=== PATIENT | male | born 1955 | race American Indian/Alaskan Native ===

== ENCOUNTER → 2016-12-24 | Outpatient (CLI) | payer OTHER ==
[2016-12-24 15:13] LABS: CHLORIDE,CL 98 mmol/L (98-110); SODIUM,NA 139 mmol/L (136-146)
--- NOTE | 2016-12-24 16:29 | CT ---
CT of the abdomen and pelvis without contrast. HISTORY: Pain TECHNIQUE: Axial CT images were obtained of the abdomen and pelvis without contrast. Coronal and sag ittal reconstructions obtained. FINDINGS: The lung bases are clear, no pleural effusion. The liver is nodular in contour. The spleen is mildly prominent size. Tiny hepatic calcifications ar e also noted. Adrenal glands, and pancreas appear unremarkable for noncontrast examination. The gall bladder appears normal. There is no bulky retroperitoneal lymphadenopathy. No abdominal ascites. Tiny renal cysts are noted. Nonobstructing stones noted within the kidneys bilaterally. The large and small bowel are normal in caliber without evidence of obstruction. The appendix appear s normal. Scattered diverticula are noted with moderate. Colonic stranding noted within the descendi ng colon. There is no bulky pelvic lymphadenopathy. No free fluid. No free air. The urinary bladder appears normal. Moderate aortic calcifications are present. Tiny fat-containing hernias. There is minimal retrolisthesis of L2 on L3. Mild degenerative changes noted within the lumbar spine and SI joints. IMPRESSION: 1. Diverticulitis within the descending colon. 2. Nodular liver consistent with cirrhosis with mild splenomegaly. 3. Small nonobstructing renal stones. 4. Moderate atheromatous vascular disease.
== END ==
LOC: MW.CHIM 13:52
PROVIDERS: ATTEND Internal Medicine
DX: R10.9 Unspecified abdominal pain (principal); K57.32 Diverticulitis of large intestine without perforation or abscess without bleeding; N20.0 Calculus of kidney; I70.90 Unspecified atherosclerosis
CPT/HCPCS: 36415; 74176; 74176-26; 80053; 81001; 85025; 85652; 86140

== ENCOUNTER 2017-11-06 10:17 | Day surgery (SDC) | payer OTHER ==
[~2017-11-06 10:17] MED LIST: Lactated Ringers 1,000 ML IV SCH; Lidocaine 2% 5 ML SDV ONE; Propofol 200 MG/20 ML SDV ONE
[2017-11-06] MEDS ORDERED: Propofol 200 MG/20 ML SDV ONE ×2 (12:55→13:07)
--- NOTE | 2017-11-06 13:36 | PCM.OPNOTE ---
- General Post-Op/Procedure Note Date of Surgery/Procedure: 11/06/17 Operative Procedure(s): Esophagogastroduodenoscopy with biopsy. Colonoscopy with cold cecal, transverse and sigmoid colon polyps. Pre Op Diagnosis: Personal history of colon polyps. Anemia. Post-Op Diagnosis: Gastritis. Cecal, transverse and sigmoid colon polyps. Diverticulosis. Anesthesia Technique: MAC (ASA III) Primary Surgeon: Morgan Drisocll Craft Coordinator: Raj Bullock Condition: Good Free Text/Narrative:: Dictation [id number] CPT CODE [id number]
[2017-11-06] MEDS ORDERED: Lactated Ringers 1,000 ML IV SCH (13:45)
--- NOTE | 2017-11-06 13:45 | PCM.POSTAN ---
POST ANESTHESIA ASSESSMENT - MENTAL STATUS Mental Status: Alert, Oriented - RESPIRATORY Respiratory Status: Respiratory Rate WNL, Airway Patent, O2 Saturation Stable - CARDIOVASCULAR CV Status: Pulse Rate WNL, Blood Pressure Stable - GASTROINTESTINAL GI Status: No Symptoms - POST OP HYDRATION Hydration Status: Adequate & Stable
--- NOTE | 2017-11-06 13:46 | PCM.PREANE ---
Preanesthetic Assessment - Anesthesia/Transfusion/Family Hx Anesthesia History: Prior Anesthesia Without Reaction Other Type of Anesthesia Reaction Comment: Denies any known problem in past Transfusion History: No Prior Transfusion(s) - Review of Systems General: No Symptoms Pulmonary: No Symptoms Cardiovascular: No Symptoms Gastrointestinal: No Symptoms Neurological: No Symptoms Other: Reports: None - Physical Assessment NPO Status Date: 11/05/17 NPO Status Time: 20:00 O2 Sat by Pulse Oximetry: 97 Respiratory Rate: 14 Vital Signs: Last Vital Signs Temp 97.7 F 11/06/17 11:04 Pulse 72 11/06/17 13:37 Resp 14 11/06/17 13:37 BP 90/63 11/06/17 13:37 Pulse Ox 97 11/06/17 13:37 Height: 5 ft 4 in Weight: 86.183 kg ASA Class: 4 Mental Status: Alert & Oriented x3 Dentition: Reports: Missing Tooth/Teeth Thyro-Mental Finger Breadths: 3 Mouth Opening Finger Breadths: 3 ROM/Head Extension: Full Lungs: Clear to Auscultation, Normal Respiratory Effort Cardiovascular: Regular Rate, Regular Rhythm - Lab Values: Laboratory Last Values Sodium 137 mmol/L (136-146) 11/06/17 11:24 Potassium 4.9 mmol/L (3.5-5.1) 11/06/17 11:24 Chloride 99 mmol/L (98-110) 11/06/17 11:24 Carbon Dioxide 26 mmol/L (21-31) 11/06/17 11:24 BUN 22 mg/dL (6.0-23.0) 11/06/17 11:24 Creatinine 5.7 mg/dL (0.6-1.5) H 11/06/17 11:24 Est Cr Clr Drug Dosing 10.96 mL/min 11/06/17 11:24 Estimated GFR (MDRD) 10.1 ml/min 11/06/17 11:24 Glucose 112 mg/dL (60-110) H 11/06/17 11:24 Calcium 9.7 mg/dL (8.8-10.8) 11/06/17 11:24 - Allergies Allergies/Adverse Reactions: Allergies Allergy/AdvReac Type Severity Reaction Status Date / Time trazodone Allergy Itching Verified 11/03/17 09:05 Bandaids Allergy Itching Uncoded 11/03/17 12:25 - Acknowledgements Anesthesia Type Planned: MAC Pt an Appropriate Candidate for the Planned Anesthesia: Yes Alternatives and Risks of Anesthesia Discussed w Pt/Guardian: Yes Pt/Guardian Understands and Agrees with Anesthesia Plan: Yes PreAnesthesia Questionnaire Other HEENT History: Bilateral hearing aids, wears glasses, upper and lower denture Cardiovascular History: Reports: High Cholesterol, Hypertension, [place] Respiratory History: Reports: SOB Other Respiratory History: SOB with excertion Gastrointestinal History: Reports: GERD, Hepatitis Other Gastrointestinal History: Hepatitis C with treatment Genitourinary History: Reports: Dialysis Musculoskeletal History: Reports: Other (See Below) Other Musculoskeletal History: hx fx collarbone Neurological History: Reports: Other (See Below) Other Neuro History: Restless Legs Endocrine/Metabolic History: Reports: Diabetes, Type II, Obesity/BMI 30+ Dermatologic History: Reports: None - Past Surgical History Head Surgeries/Procedures: Reports: None HEENT Surgical History: Reports: Adenoidectomy, Oral Surgery, Tonsillectomy Other HEENT Surgeries/Procedures: T & A age 5 yrs Cardiovascular Surgical History: Reports: Coronary Artery Stent Other Cardiovascular Surgeries/Procedures: Stenting 13 yrs ago [place] [id number], [place] stenting [place] 09/2014 GI Surgical History: Reports: Colonoscopy Other GI Surgeries/Procedures: Liver Biopsy 10 yrs ago Male Surgical History: Reports: Vasectomy - SUBSTANCE USE Smoking Status *Q: Former Smoker Tobacco Use Within Last Twelve Months:  Second Hand Smoke Exposure: No Days Per Week of Alcohol Use: 0 Recreational Drug Use History: No - HOME MEDS Home Medications: Home Meds Albuterol [Ventolin HFA] 8 gm INH Q6H PRN 05/22/15 [History] Ascorbic Acid [C-1000] 1,000 mg PO BID 05/22/15 [History] Bumetanide [Bumex] 1 mg PO DAILY 05/22/15 [History] Calcium Acetate 3 tab PO TIDMEALS 05/22/15 [History] Isosorbide Mononitrate [Isosorbide Mononitrate ER] 60 mg PO BID 05/22/15 [ History] Melatonin 6 mg PO BEDTIME 05/22/15 [History] Ranitidine [Zantac] 150 mg PO BID 05/22/15 [History] hydrALAZINE [Apresoline] 25 mg PO TID 05/22/15 [History] rOPINIRole [Requip] 2 mg PO BEDTIME 05/22/15 [History] Aspirin [Adult Low Dose Aspirin EC] 81 mg PO BEDTIME 05/23/15 [History] Nitroglycerin [Nitro-Dur 0.3 MG/Hr] 1 patch TD DAILY 05/23/15 [History] Nitroglycerin [Nitrostat] 0.4 mg SL ASDIRECTED PRN 05/23/15 [History] Sevelamer HCl [Renagel] 800 mg PO TIDMEALS 05/23/15 [History] Glucosamine [Glucosamine Sulfate] 750 mg PO BID 07/28/15 [History] Multivitamin [Daily Multiple Vitamin] 1 tab PO DAILY 07/28/15 [History] NIFEdipine [Nifedipine ER] 60 mg PO BID 07/28/15 [History] [place]-3 Fatty Acids [[place]-3] 1 cap PO DAILY 07/28/15 [History] Metoprolol Tartrate 100 mg PO BID 11/03/17 [History] - CURRENT (IN HOUSE) MEDS Current Meds: Current Medications Lactated Ringer's (Ringers, Lactated) 1,000 mls @ 125 mls/hr IV ASDIRECTED [facility] Last Admin: 11/06/17 11:05 Dose: 125 mls/hr Lactated Ringer's (Ringers, Lactated) 1,000 mls @ 125 mls/hr IV ASDIRECTED [facility] Discontinued Medications Lidocaine (Xylocaine-Mpf 2%) Confirm Administered Dose 5 ml .ROUTE .STK-MED ONE Stop: 11/06/17 07:33 Propofol (Diprivan 20 Ml) Confirm Administered Dose 400 mg .ROUTE .STK-MED ONE Stop: 11/06/17 07:33 Propofol (Diprivan 20 Ml) Confirm Administered Dose 200 mg .ROUTE .STK-MED ONE Stop: 11/06/17 12:56 Propofol (Diprivan 20 Ml) Confirm Administered Dose 200 mg .ROUTE .STK-MED ONE Stop: 11/06/17 13:08
[2017-11-06 13:55] VITALS: BP 151/66
--- NOTE | 2017-11-06 14:00 | PCM48HPAN ---
Post Anesthesia Note - EVALUATION WITHIN 48HRS OF ANESTHETIC Vital Signs in Normal Range: Yes Patient Participated in Evaluation: Yes Respiratory Function Stable: Yes Airway Patent: Yes Cardiovascular Function Stable: Yes Hydration Status Stable: Yes Pain Control Satisfactory: Yes Nausea and Vomiting Control Satisfactory: Yes Mental Status Recovered: Yes
--- NOTE | 2017-11-06 19:40 | OR ---
SURGEON: Morgan Driscoll M.D. DATE OF PROCEDURE: 11/06/2017 OPERATION PERFORMED: Esophagogastroduodenoscopy with biopsy. ANESTHESIA: MAC. ASA CLASSIFICATION: 3. PREOPERATIVE DIAGNOSES: 1. Persistent abdominal pain. 2. Anemia. POSTOPERATIVE DIAGNOSIS: Mild gastritis. DESCRIPTION OF PROCEDURE: The patient was taken to the endoscopy room and positioned on the endoscopy table in the supine position. Time-out was called for appropriate identification of the patient and procedure. Monitored anesthesia care was provided. A bite block was placed between the patient's teeth. The gastroscope was inserted through the bite block into the oropharynx and advanced without difficulty through the esophagus and stomach into the duodenum where examination was now carried out in a retrograde fashion. The duodenum shows no acute inflammatory changes or ulcerations. The stomach does show [id number] gastritis. Antral biopsies were obtained to look for the presence of Helicobacter pylori. The gastroscope was then retroflexed to visualize the proximal stomach. No tumors or polyps were seen. The gastroscope was then straightened and slowly withdrawn aspirating the stomach as the scope was withdrawn. The GE junction was well defined and shows no acute inflammatory changes. The esophagus demonstrates fair contractility. No mid or proximal lesions were identified. The vocal cords were not visualized as the scope was withdrawn. The patient tolerated this portion of the procedure well. Following colonoscopy, he was taken to recovery room in stable condition. BALJINDER ADAN /[id number]
--- NOTE | 2017-11-06 19:46 | OR ---
SURGEON: Morgan Driscoll M.D. DATE OF PROCEDURE: 11/06/2017 OPERATION PERFORMED: Colonoscopy with cecal, transverse, and descending colon cold polypectomy. INSURANCE ADJUSTOR: Dr. Allen, PGY-3. ANESTHESIA: MAC. ASA CLASSIFICATION: 3. PREOPERATIVE DIAGNOSES: 1. New onset anemia. 2. Personal history of colon polyps. POSTOPERATIVE DIAGNOSES: 1. Cecal polyp. 2. Transverse colon polyp. 3. Descending colon polyp. 4. Sigmoid diverticulosis. DESCRIPTION OF PROCEDURE: With the patient having completed esophagogastroduodenoscopy, he was now positioned in the left lateral decubitus position. The colonoscope was inserted into the rectum and advanced with minimal difficulty to the cecum where the colonoscope was retroflexed to visualize the ascending colon from below. The colonoscope was then straightened and slowly withdrawn. One polyp was encountered in the cecum and removed with the cold biopsy forceps. The ascending colon, hepatic flexure, transverse colon, and splenic flexure showed no tumors, or polyps. Scattered diverticular changes were noted throughout the entire length of the colon. One polyp was encountered in the transverse colon and removed with the cold biopsy forceps. A 3rd polyp was encountered in the sigmoid colon and likewise removed with the cold biopsy forceps. The patient demonstrates significant sigmoid diverticular disease. No stricture, spasm, or bleeding was noted. The colonoscope was then withdrawn to the rectum and retroflexed to visualize the anal orifice from above. No tumors or polyps were seen and there were no acute hemorrhoidal changes. The colonoscope was then straightened, the rectum aspirated, and the colonoscope removed. The patient tolerated the procedure well and was taken to recovery room in satisfactory condition. BALJINDER / ANTIONETTE /[id number]
== END 2017-11-06 14:00 | disposition home or self-care (01) ==
LOC: MW.SDS 10:17
PROVIDERS: ATTEND Surgery
DX: D12.4 Benign neoplasm of descending colon (principal); K29.50 Unspecified chronic gastritis without bleeding; D12.0 Benign neoplasm of cecum; D12.3 Benign neoplasm of transverse colon; D64.9 Anemia, unspecified; K57.30 Diverticulosis of large intestine without perforation or abscess without bleeding; I25.10 Atherosclerotic heart disease of native coronary artery without angina pectoris; K74.60 Unspecified cirrhosis of liver; I10 Essential (primary) hypertension; E78.00 Pure hypercholesterolemia, unspecified; G47.00 Insomnia, unspecified; E11.9 Type 2 diabetes mellitus without complications; I25.2 Old myocardial infarction; E66.9 Obesity, unspecified; Z68.33 Body mass index [BMI] 33.0-33.9, adult; Z86.010 Personal history of colon polyps; Z88.8 Allergy status to other drugs, medicaments and biological substances; Z79.899 Other long term (current) drug therapy; Z98.52 Vasectomy status; Z98.890 Other specified postprocedural states; Z90.89 Acquired absence of other organs; Z87.891 Personal history of nicotine dependence; Z86.19 Personal history of other infectious and parasitic diseases; Z95.5 Presence of coronary angioplasty implant and graft; Z79.82 Long term (current) use of aspirin
CPT/HCPCS: 36415; 43239; 45380; 80048; 88305; 88312; 93005; J7120; 00813; J2704

== ENCOUNTER 2019-03-15 04:29 | Emergency (ER) | payer OTHER ==
[2019-03-15] MEDS ORDERED: Albuterol/Ipratropium 3.0-0.5 MG/3 ML Neb Soln ONE (04:41)
[2019-03-15] MEDS ORDERED: Albuterol/Ipratropium 3.0-0.5 MG/3 ML Neb Soln NEB ONE ×2 (04:43→05:49)
[2019-03-15] MEDS ORDERED: Sodium Chloride 0.9% 2.5 ML Syringe FLUSH PRN (04:44)
[2019-03-15] MEDS ORDERED: Sodium Chloride 0.9% 10 ML Syringe FLUSH PRN (04:44)
[2019-03-15] MEDS ORDERED: Aspirin 81 MG Tab.Chew PO ONE (04:44)
[2019-03-15] MEDS ORDERED: methylPREDNISolone Sodium Succinate 125 MG/2 ML SDV IVPUSH ONE (04:44)
--- NOTE | 2019-03-15 04:53 | EDM.PDOC ---
ED HPI GENERAL MEDICAL PROBLEM - General Chief Complaint: Respiratory Problem Stated Complaint: SOB Time Seen by Provider: 03/15/19 04:34 - History of Present Illness INITIAL COMMENTS - FREE TEXT/NARRATIVE: HISTORY AND PHYSICAL: History of present illness: The patient is a 63-year-old male with a history of hypertension chronic renal failure on hemodialysis, Thursday and Thursday here in our clinic, and respiratory abnormality which does not have a formal diagnosis but for which he uses a Ventolin/albuterol inhaler when necessary and presents with with a one-week history of harsh hacking cough which is spastic in nature and over the last 2 days has been associated with some phlegm. The patient has no chest pain or fever but says that he has been progressively more short of breath. The patient has not used his Ventolin inhaler until tonight. The patient smokes one pack a day for many years. He says that when he does his dialysis they correct both fluid and electrolytes and his last dialysis was done on Thursday and was a normal run. The patient is scheduled for dialysis at 6 AM, 1 hour from this dictation. Patient has a fistula on his right forearm which is functional and does well with his dialysis and he has been on dialysis for the last 5 years. The patient does make some urine but not a normal amount and he has had no abdominal pain bloating nausea vomiting or diarrhea. He denies that he is having any chest pain but with activity and movement as well as laying flat he feels more short of breath. Since to the ED stating that she thinks he has pneumonia and that was her concern. When asked if he has a formal diagnosis of COPD or asthma they declined. Currently in the ED he is not complaining of any pain whatsoever including chest pain. The patient does have a history of peripheral vascular disease and has a stent and his proximal leg and also has a coronary artery stent that was placed over 10 years ago The patient has had some recent workup in the last few weeks including an echocardiogram and a nuclear med stress test, please see below for those results Review of systems: As per history of present illness and below otherwise all systems reviewed and negative. Past medical history: As per history of present illness and as reviewed below otherwise noncontributory. Surgical history: As per history of present illness and as reviewed below otherwise noncontributory. Social history: No reported history of drug or alcohol abuse. Family history: As per history of present illness and as reviewed below otherwise noncontributory. Physical exam: General: Well-developed well-nourished man who is nontoxic and speaking clearly in the ED. Room air O2 sat was 86-88% and other vital signs are noted by me HEENT: Atraumatic, normocephalic, , negative for conjunctival pallor or scleral icterus, mucous membranes moist, throat clear, neck supple, nontender, trachea midline. Lungs: Clear to auscultation in the upper barney and expiratory wheezing and tight air exchange in the bases bilaterally without any visible work of breathing stridor rails, breath sounds equal bilaterally, chest nontender. Heart: S1S2, regular rate and rhythm no overt murmurs are appreciated Abdomen: Soft, nondistended, nontender. Negative for masses or hepatosplenomegaly. Slightly hypoactive bowel sounds Pelvis: Stable nontender. Genitourinary: Deferred. Rectal: Deferred. Extremities: Atraumatic, negative for cords or calf pain. There is trace pitting edema bilaterally and no leg asymmetry and there is a fistula with a positive thrill appreciated in the lower right forearm. Neurovascular unremarkable. Neuro: Awake, alert, oriented. Cranial nerves II through XII unremarkable. Cerebellum unremarkable. Motor and sensory unremarkable throughout. Exam nonfocal. Diagnostics: EKG CBC CMP BNP troponin lactic acid chest x-ray UA with reflex Therapeutics: IV O2 monitor duo neb Solu-Medrol spacer With 4 L simple mask the patient's O2 sat is 94-95% Patient's echo was done on March 03 and revealed an ejection fraction of 60-65% and normal LV function, mild concentric hypertrophy, mild aortic valve sclerosis , mild mitral valve regurgitation, increased left atrial and left ventricular end-diastolic pressures On February 14 the patient had a nuclear medicine stress test which revealed an EF of 70% no EKG changes of significance and a small reversible area in the inferior left wall at the base Today's hemoglobin is compared to one performed on January 26 which was 9.5 and one done in October which was 9.1 2 days of 9.6 Patient is feeling better and we are beginning to taper his oxygen. He does not want another nebulizer treatment at this time. They're currently awaiting his chest x-ray results I discussed all testing results with the patient and at bedside. I have offered them admission/transfer for further care of this respiratory abnormality as the patient is due for dialysis today and we cannot admit the patient here and they are declining. They're aware that his O2 sat when he came into the ED was 86-88% but has significantly improved with the bronchodilation. I have weaned his oxygen to room air and he is holding his sats at 93% on my personal evaluation. He is moving air better overall but still has some worse breath sounds and wheezing but is significantly improved then he has initial examination. They would like to try outpatient care and I will organize getting the patient a nebulizer through [employer] and give the albuterol unit dose vials , I will also give him a spacer so he can use his rescue inhaler, I will give 5 days of prednisone and I will also give them an antibiotic as the still has some concerns that they may be the start of a pneumonia as was seen on the x -ray. I think the patient needs to take big deep breaths and open his airways and he agrees that he has not been doing that at home. They would like to be discharged home to go to dialysis this morning and I have told him that if after his dialysis run he feels that he needs admission that he can return to the ED otherwise he can use the new tools that he has to control what I believe to be COPD which is undiagnosed at this point. Impression: Dyspnea/acute bronchospasm and bronchitis with likely COPD exacerbation, long history of tobacco use End-stage renal disease on hemodialysis Definitive disposition and diagnosis as appropriate pending reevaluation and review of above. - Related Data Allergies Allergy/AdvReac Type Severity Reaction Status Date / Time trazodone Allergy Itching Verified 03/15/19 04:36 Bandaids Allergy Itching Uncoded 03/15/19 04:36 Home Meds: Home Meds Albuterol [Ventolin HFA] 8 gm INH Q6H PRN 05/22/15 [History] Ascorbic Acid [C-1000] 2,000 mg PO BID 05/22/15 [History] Bumetanide [Bumex] 1 mg PO DAILY 05/22/15 [History] Melatonin 6 mg PO BEDTIME 05/22/15 [History] Ranitidine [Zantac] 150 mg PO BID 05/22/15 [History] hydrALAZINE [Apresoline] 25 mg PO BID 05/22/15 [History] rOPINIRole [Requip] 2 mg PO BEDTIME 05/22/15 [History] Aspirin [Adult Low Dose Aspirin EC] 81 mg PO BEDTIME 05/23/15 [History] Nitroglycerin [Nitro-Dur 0.3 MG/Hr] 1 patch TD DAILY 05/23/15 [History] Nitroglycerin [Nitrostat] 0.4 mg SL ASDIRECTED PRN 05/23/15 [History] Glucosamine [Glucosamine Sulfate] 1,000 mg PO BID 07/28/15 [History] Multivitamin [Daily Multiple Vitamin] 1 tab PO DAILY 07/28/15 [History] Metoprolol Tartrate 100 mg PO BID 11/03/17 [History] Acetaminophen/HYDROcodone [Craig 325-7.5 MG] 1 tab PO Q6H PRN 03/15/19 [History] Calcium Acetate [PhosLo] 667 mg PO TID 03/15/19 [History] Clopidogrel [Plavix] 75 mg PO DAILY 03/15/19 [History] Fenofibrate 54 mg PO DAILY 03/15/19 [History] Glycopyrrolate/Formoterol Fum [Bevespi Aerosphere Inhaler] 10.7 gm IH BID [History] Isosorbide Mononitrate [Imdur] 60 mg PO BID 03/15/19 [History] NIFEdipine [Procardia Xl] 60 mg PO BID 03/15/19 [History] Pantoprazole Sodium [Protonix] 20 mg PO DAILY 03/15/19 [History] Sevelamer Carbonate [Renvela] 1,600 mg PO TID 03/15/19 [History] Past Medical History Other HEENT History: Bilateral hearing aids, wears glasses, upper and lower denture Cardiovascular History: Reports: High Cholesterol, Hypertension, [place] Respiratory History: Reports: SOB Other Respiratory History: SOB with excertion Gastrointestinal History: Reports: GERD, Hepatitis Other Gastrointestinal History: Hepatitis C with treatment Genitourinary History: Reports: Dialysis, Renal Disease Musculoskeletal History: Reports: Fracture, Other (See Below) Other Musculoskeletal History: hx fx collarbone Neurological History: Reports: Other (See Below) Other Neuro History: Restless Legs Psychiatric History: Reports: None Endocrine/Metabolic History: Reports: Diabetes, Type II, Obesity/BMI 30+ Hematologic History: Reports: Anticoagulation Therapy, Blood Transfusion(s) Immunologic History: Reports: None Oncologic (Cancer) History: Reports: None Dermatologic History: Reports: None - Infectious Disease History Infectious Disease History: Reports: Hepatitis C - Past Surgical History Head Surgeries/Procedures: Reports: None HEENT Surgical History: Reports: Adenoidectomy, Oral Surgery, Tonsillectomy Cardiovascular Surgical History: Reports: Coronary Artery Stent Other Cardiovascular Surgeries/Procedures: Stenting 15 yrs ago [place] x1, [place] stenting [place] 09/2014 GI Surgical History: Reports: Colonoscopy Other GI Surgeries/Procedures: Liver Biopsy 10 yrs ago Male Surgical History: Reports: Vasectomy Social & Family History - Tobacco Use Smoking Status *Q: Current Every Day Smoker Years of Tobacco use: 47 Packs/Tins Daily: 1 - Recreational Drug Use Recreational Drug Use: No ED ROS GENERAL - Review of Systems Review Of Systems: ROS reveals no pertinent complaints other than HPI. ED EXAM, GENERAL - Physical Exam Exam: See Below (See dictation) Course - Vital Signs Last Recorded V/S: Last Vital Signs Temp 35.9 C 03/15/19 04:31 Pulse 86 03/15/19 05:15 Resp 20 03/15/19 05:15 BP 188/84 H 03/15/19 05:15 Pulse Ox 96 03/15/19 05:15 - Orders/Labs/Meds Orders: Active Orders 24 hr Category Date Time Status Cardiac Monitoring [RC] . DIRECTED Care 03/15/19 04:43 Active Communication Order [RC] STAT Care 03/15/19 05:34 Active Communication Order [RC] STAT Care 03/15/19 05:55 Ordered EKG Documentation Completion [RC] STAT Care 03/15/19 04:43 Active Oxygen Therapy, ED [RC] ASDIRECTED Care 03/15/19 04:43 Active Pulse Oximetry [RC] ASDIRECTED Care 03/15/19 04:43 Active RT Aerosol Therapy [RC] ASDIRECTED Care 03/15/19 04:44 Active RT Aerosol Therapy [RC] ASDIRECTED Care 03/15/19 05:49 Active Sodium Chloride 0.9% [Saline Flush] Med 03/15/19 04:44 Active 10 ml FLUSH ASDIRECTED PRN Sodium Chloride 0.9% [Saline Flush] Med 03/15/19 04:44 Active 2.5 ml FLUSH ASDIRECTED PRN Saline Lock Insert [OM.PC] Stat Oth 03/15/19 04:43 Ordered Medication Orders Sodium Chloride (Saline Flush) 10 ml FLUSH ASDIRECTED PRN PRN Reason: Keep Vein Open Sodium Chloride (Saline Flush) 2.5 ml FLUSH ASDIRECTED PRN PRN Reason: Keep Vein Open Labs: Laboratory Tests 03/15/19 03/15/19 03/15/19 Range/Units 04:30 04:30 04:30 WBC 8.88 (4.0-11.0) K/uL RBC 2.96 L (4.50-5.90) M/uL Hgb 9.6 L (13.0-17.0) g/dL Hct 30.6 L (38.0-50.0) % MCV 103.4 H (80.0-98.0) fL MCH 32.4 H (27.0-32.0) pg MCHC 31.4 (31.0-37.0) g/dL RDW Std Deviation 60.4 (28.0-62.0) fl RDW Coeff of Candido 16 H (11.0-15.0) % Plt Count 106 L (150-400) K/uL MPV 9.70 (7.40-12.00) fL Neut % (Auto) 85.7 H (48.0-80.0) % Lymph % (Auto) 8.4 L (16.0-40.0) % [place] % (Auto) 3.8 (0.0-15.0) % Eos % (Auto) 1.9 (0.0-7.0) % Baso % (Auto) 0.2 (0.0-1.5) % Neut # (Auto) 7.6 H (1.4-5.7) K/uL Lymph # (Auto) 0.8 (0.6-2.4) K/uL [place] # (Auto) 0.3 (0.0-0.8) K/uL Eos # (Auto) 0.2 (0.0-0.7) K/uL Baso # (Auto) 0.0 (0.0-0.1) K/uL Nucleated RBC % 0.0 /100WBC Nucleated RBCs # 0 K/uL Lactate (0.20-2.00) mmol/L Sodium 139 (136-148) mmol/L Potassium 4.4 (3.5-5.1) mmol/L Chloride 99 (98-107) mmol/L Carbon Dioxide 21.6 (21.0-32.0) mmol/L BUN 78 H (7.0-18.0) mg/dL Creatinine 9.9 H (0.8-1.3) mg/dL Est Cr Clr Drug Dosing 6.47 mL/min Estimated GFR (MDRD) 5.3 ml/min Glucose 165 H (74-106) mg/dL Calcium 9.8 (8.5-10.1) mg/dL Total Bilirubin 0.4 (0.2-1.0) mg/dL AST 16 (15-37) IU/L ALT 18 (14-63) IU/L Alkaline Phosphatase 90 (46-116) U/L Troponin I < 0.050 (0.000-0.056) ng/mL B-Natriuretic Peptide 794 H (<100) PG/ML Total Protein 7.4 (6.4-8.2) g/dL Albumin 3.7 (3.4-5.0) g/dL Globulin 3.7 (2.6-4.0) g/dL Albumin/Globulin Ratio 1.0 (0.9-1.6) Urine Color Urine Appearance Urine pH (5.0-8.0) Ur Specific [place] (1.001-1.035) Urine Protein (NEGATIVE) mg/dL Urine Glucose (UA) (NEGATIVE) mg/dL Urine Ketones (NEGATIVE) mg/dL Urine Occult Blood (NEGATIVE) Urine Nitrite (NEGATIVE) Urine Bilirubin (NEGATIVE) Urine Urobilinogen (<2.0) EU/dL Ur Leukocyte Esterase (NEGATIVE) Urine RBC (0-2/HPF) Urine WBC (0-5/HPF) Ur Epithelial Cells (NONE-FEW) Urine Bacteria (NEGATIVE) Urine Mucus (NONE-MOD) 03/15/19 03/15/19 Range/Units 05:00 05:15 WBC (4.0-11.0) K/uL RBC (4.50-5.90) M/uL Hgb (13.0-17.0) g/dL Hct (38.0-50.0) % MCV (80.0-98.0) fL MCH (27.0-32.0) pg MCHC (31.0-37.0) g/dL RDW Std Deviation (28.0-62.0) fl RDW Coeff of [place] (11.0-15.0) % Plt Count (150-400) K/uL MPV (7.40-12.00) fL Neut % (Auto) (48.0-80.0) % Lymph % (Auto) (16.0-40.0) % [place] % (Auto) (0.0-15.0) % Eos % (Auto) (0.0-7.0) % Baso % (Auto) (0.0-1.5) % Neut # (Auto) (1.4-5.7) K/uL Lymph # (Auto) (0.6-2.4) K/uL [place] # (Auto) (0.0-0.8) K/uL Eos # (Auto) (0.0-0.7) K/uL Baso # (Auto) (0.0-0.1) K/uL Nucleated RBC % /100WBC Nucleated RBCs # K/uL Lactate 0.6 (0.20-2.00) mmol/L Sodium (136-148) mmol/L Potassium (3.5-5.1) mmol/L Chloride (98-107) mmol/L Carbon Dioxide (21.0-32.0) mmol/L BUN (7.0-18.0) mg/dL Creatinine (0.8-1.3) mg/dL Est Cr Clr Drug Dosing mL/min Estimated GFR (MDRD) ml/min Glucose (74-106) mg/dL Calcium (8.5-10.1) mg/dL Total Bilirubin (0.2-1.0) mg/dL AST (15-37) IU/L ALT (14-63) IU/L Alkaline Phosphatase (46-116) U/L Troponin I (0.000-0.056) ng/mL B-Natriuretic Peptide (<100) PG/ML Total Protein (6.4-8.2) g/dL Albumin (3.4-5.0) g/dL Globulin (2.6-4.0) g/dL Albumin/Globulin Ratio (0.9-1.6) Urine Color YELLOW Urine Appearance CLEAR Urine pH 7.5 (5.0-8.0) Ur Specific [place] 1.020 (1.001-1.035) Urine Protein >=300 H (NEGATIVE) mg/dL Urine Glucose (UA) 100 H (NEGATIVE) mg/dL Urine Ketones NEGATIVE (NEGATIVE) mg/dL Urine Occult Blood SMALL H (NEGATIVE) Urine Nitrite NEGATIVE (NEGATIVE) Urine Bilirubin NEGATIVE (NEGATIVE) Urine Urobilinogen 0.2 (<2.0) EU/dL Ur Leukocyte Esterase NEGATIVE (NEGATIVE) Urine RBC 5-6 (0-2/HPF) Urine WBC 0-2 (0-5/HPF) Ur Epithelial Cells RARE (NONE-FEW) Urine Bacteria FEW (NEGATIVE) Urine Mucus LIGHT (NONE-MOD) Meds: Medications Generic Name Dose Route Start Last Admin Trade Name Freq PRN Reason Stop Dose Admin Sodium Chloride 10 ml 03/15/19 04:44 Saline Flush FLUSH ASDIRECTED PRN Keep Vein Open Sodium Chloride 2.5 ml 03/15/19 04:44 Saline Flush FLUSH ASDIRECTED PRN Keep Vein Open Discontinued Medications Generic Name Dose Route Start Last Admin Trade Name Freq PRN Reason Stop Dose Admin Albuterol/Ipratropium Confirm 03/15/19 04:41 03/15/19 04:55 Duoneb 3.0-0.5 Mg/3 Ml Administered 03/15/19 04:42 Not Given Dose 3 ml .ROUTE .STK-MED ONE Albuterol/Ipratropium 3 ml 03/15/19 04:43 03/15/19 04:54 Duoneb 3.0-0.5 Mg/3 Ml NEB 03/15/19 04:44 3 ml ONETIME ONE Administration Albuterol/Ipratropium 3 ml 03/15/19 05:49 03/15/19 05:52 Duoneb 3.0-0.5 Mg/3 Ml NEB 03/15/19 05:50 3 ml ONETIME ONE Administration Aspirin 324 mg 03/15/19 04:44 03/15/19 04:50 Aspirin PO 03/15/19 04:45 324 mg ONETIME ONE Administration Methylprednisolone Sodium Succinate 125 mg 03/15/19 04:44 03/15/19 04:49 Solu-Medrol IVPUSH 03/15/19 04:45 125 mg ONETIME ONE Administration Departure - Departure Time of Disposition: 06:02 Disposition: Home, Self-Care 01 Condition: Good Clinical Impression: Acute bronchitis with bronchospasm, End stage renal disease - Discharge Information Referrals: Yosef العراقي MD [Primary Care Provider] - Forms: ED Department Discharge Additional Instructions: The following information is given to patients seen in the emergency department who are being discharged to home. This information is to outline your options for follow-up care. We provide all patients seen in our emergency department with a follow-up referral. The need for follow-up, as well as the timing and circumstances, are variable depending upon the specifics of your emergency department visit. If you don't have a primary care physician on staff, we will provide you with a referral. We always advise you to contact your personal physician following an emergency department visit to inform them of the circumstance of the visit and for follow-up with them and/or the need for any referrals to a consulting specialist. The emergency department will also refer you to a specialist when appropriate. This referral assures that you have the opportunity for followup care with a specialist. All of these measure are taken in an effort to provide you with optimal care, which includes your followup. Under all circumstances we always encourage you to contact your private physician who remains a resource for coordinating your care. When calling for followup care, please make the office aware that this follow-up is from your recent emergency room visit. If for any reason you are refused follow-up, please contact the [facility] emergency department at and ask to speak to the emergency department charge nurse. [facility] Primary care- Internal Medicine and Family [place] [phone] Go to your dialysis appointment this morning and reevaluate your symptoms after your dialysis run and return to ER as needed and as discussed. Please get your nebulizer machine from [facility] as we instructed and filled the prescription for all of your medications that he will need to take in this acute phase of your respiratory problem. Call and schedule a follow-up appointment with your provider in the clinic and return to ER for any worsening of your symptoms or as we discussed. - My Orders Last 24 Hours: My Active Orders 03/15/19 04:43 Cardiac Monitoring [RC] . DIRECTED EKG Documentation Completion [RC] STAT Oxygen Therapy, ED [RC] ASDIRECTED Pulse Oximetry [RC] ASDIRECTED Saline Lock Insert [OM.PC] Stat 03/15/19 04:44 RT Aerosol Therapy [RC] ASDIRECTED Sodium Chloride 0.9% [Saline Flush] 10 ml FLUSH ASDIRECTED PRN Sodium Chloride 0.9% [Saline Flush] 2.5 ml FLUSH ASDIRECTED PRN 03/15/19 05:34 Communication Order [RC] STAT 03/15/19 05:49 RT Aerosol Therapy [RC] ASDIRECTED 03/15/19 05:55 Communication Order [RC] STAT - Assessment/Plan Last 24 Hours: My Active Orders 03/15/19 04:43 Cardiac Monitoring [RC] . DIRECTED EKG Documentation Completion [RC] STAT Oxygen Therapy, ED [RC] ASDIRECTED Pulse Oximetry [RC] ASDIRECTED Saline Lock Insert [OM.PC] Stat 03/15/19 04:44 RT Aerosol Therapy [RC] ASDIRECTED Sodium Chloride 0.9% [Saline Flush] 10 ml FLUSH ASDIRECTED PRN Sodium Chloride 0.9% [Saline Flush] 2.5 ml FLUSH ASDIRECTED PRN 03/15/19 05:34 Communication Order [RC] STAT 03/15/19 05:49 RT Aerosol Therapy [RC] ASDIRECTED 03/15/19 05:55 Communication Order [RC] STAT
[2019-03-15 05:04] LABS: CHLORIDE,CL 99 mmol/L (98-107); SODIUM,NA 139 mmol/L (136-148)
--- NOTE | 2019-03-15 05:44 | CR ---
Indication: Shortness of breath Technique: Chest 2 views Comparison: 09/17/2016 Findings/Impression: Cardiovascular and mediastinum: Unremarkable cardiomediastinal silhouette for a portable technique. A calcified aorta. Lungs and pleural spaces: Foci of mild subsegmental atelectasis. A right infrahilar opacity could represent atelectasis or an infiltrate. Correlate clinically and followup. No pleural effusions. 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 Dictated by Collins Childress MD @ 03/15/2019 5:42:29 AM Dictated by: Collins Childress MD @ 03/15/2019 05:42:34 (Electronically Signed)
[2019-03-15 06:19] VITALS: BP 182/77
== END 2019-03-15 06:27 | disposition home or self-care (01) ==
LOC: MW.ED 04:29
DX: J20.9 Acute bronchitis, unspecified (principal); I12.0 Hypertensive chronic kidney disease with stage 5 chronic kidney disease or end stage renal disease; N18.6 End stage renal disease; E78.00 Pure hypercholesterolemia, unspecified; I25.2 Old myocardial infarction; K21.9 Gastro-esophageal reflux disease without esophagitis; F17.210 Nicotine dependence, cigarettes, uncomplicated; Z99.2 Dependence on renal dialysis; Z88.8 Allergy status to other drugs, medicaments and biological substances; Z88.5 Allergy status to narcotic agent; Z79.899 Other long term (current) drug therapy
CPT/HCPCS: 36415; 71046; 80053; 81001; 83605; 83880; 84484; 85025; 93005; 94640; 96374; 99285; A9270; J2930; 99283; J7620-GY

== ENCOUNTER 2019-03-27 20:49 | Emergency (ER) | payer OTHER ==
[2019-03-27] MEDS ORDERED: Aspirin 81 MG Tab.Chew PO ONE (21:07)
[2019-03-27] MEDS ORDERED: Morphine 2 MG/ML Syringe IVPUSH ONE (21:07)
[2019-03-27] MEDS ORDERED: Ondansetron 4 MG/2 ML SDV IVPUSH ONE (21:07)
[2019-03-27] MEDS ORDERED: Nitroglycerin/D5W 25 MG/250 ML BOTTLE IV SCH (21:15)
[2019-03-27] MEDS ORDERED: Sodium Chloride 0.9% 1,000 ML IV SCH (21:15)
--- NOTE | 2019-03-27 21:21 | EDM.PDOC ---
ED HPI GENERAL MEDICAL PROBLEM - General Chief Complaint: Chest Pain Stated Complaint: CHEST PAIN Time Seen by Provider: 03/27/19 20:59 - History of Present Illness INITIAL COMMENTS - FREE TEXT/NARRATIVE: HISTORY AND PHYSICAL: History of present illness: Patient 64-year-old male with history of coronary artery disease who presents with chest pain substernal partially relieved with sublingual nitroglycerin 4 and regular patient continued to have chest pain and shortness of breath he did have nausea with one episode of emesis on arrival. Review of systems: As per history of present illness and below otherwise all systems reviewed and negative. Past medical history: As per history of present illness and as reviewed below otherwise noncontributory. Surgical history: As per history of present illness and as reviewed below otherwise noncontributory. Social history: No reported history of drug or alcohol abuse. Family history: As per history of present illness and as reviewed below otherwise noncontributory. Physical exam: HEENT: Atraumatic, normocephalic, pupils reactive, negative for conjunctival pallor or scleral icterus, mucous membranes moist, throat clear, neck supple, nontender, trachea midline. Lungs: Clear to auscultation, breath sounds equal bilaterally, chest nontender. Heart: S1S2, regular, negative for clicks, rubs, or JVD. Abdomen: Soft, nondistended, nontender. Negative for masses or hepatosplenomegaly. Negative for costovertebral tenderness. Pelvis: Stable nontender. Genitourinary: Deferred. Rectal: Deferred. Extremities: Atraumatic, negative for cords or calf pain. Neurovascular unremarkable. Neuro: Awake, alert, oriented. Cranial nerves II through XII unremarkable. Cerebellum unremarkable. Motor and sensory unremarkable throughout. Exam nonfocal. Diagnostics: CBC CMP troponin PT/INR chest x-ray EKG BNP Therapeutics: Full dose aspirin by mouth IV O2 monitor IV nitroglycerin morphine sulfate 2 mg IV Zofran 4 mg IV Impression: #1 chest pain #2 acute coronary syndrome Definitive disposition and diagnosis as appropriate pending reevaluation and review of above. Middle Chest Pain Score (Numeric/FACES): 10 - Related Data Allergies Allergy/AdvReac Type Severity Reaction Status Date / Time trazodone Allergy Itching Verified 03/27/19 21:02 Bandaids Allergy Itching Uncoded 03/27/19 21:02 Home Meds: Home Meds Albuterol [Ventolin HFA] 8 gm INH Q6H PRN 05/22/15 [History] Ascorbic Acid [C-1000] 2,000 mg PO BID 05/22/15 [History] Bumetanide [Bumex] 1 mg PO DAILY 05/22/15 [History] Melatonin 6 mg PO BEDTIME 05/22/15 [History] Ranitidine [Zantac] 150 mg PO BID 05/22/15 [History] hydrALAZINE [Apresoline] 25 mg PO BID 05/22/15 [History] rOPINIRole [Requip] 2 mg PO BEDTIME 05/22/15 [History] Aspirin [Adult Low Dose Aspirin EC] 81 mg PO BEDTIME 05/23/15 [History] Nitroglycerin [Nitro-Dur 0.3 MG/Hr] 1 patch TD DAILY 05/23/15 [History] Nitroglycerin [Nitrostat] 0.4 mg SL ASDIRECTED PRN 05/23/15 [History] Glucosamine [Glucosamine Sulfate] 1,000 mg PO BID 07/28/15 [History] Multivitamin [Daily Multiple Vitamin] 1 tab PO DAILY 07/28/15 [History] Metoprolol Tartrate 100 mg PO BID 11/03/17 [History] Acetaminophen/HYDROcodone [Dora 325-7.5 MG] 1 tab PO Q6H PRN 03/15/19 [History] Calcium Acetate [PhosLo] 667 mg PO TID 03/15/19 [History] Clopidogrel [Plavix] 75 mg PO DAILY 03/15/19 [History] Fenofibrate 54 mg PO DAILY 03/15/19 [History] Glycopyrrolate/Formoterol Fum [Bevespi Aerosphere Inhaler] 10.7 gm IH BID [History] Isosorbide Mononitrate [Imdur] 60 mg PO BID 03/15/19 [History] NIFEdipine [Procardia Xl] 60 mg PO BID 03/15/19 [History] Pantoprazole Sodium [Protonix] 20 mg PO DAILY 03/15/19 [History] Sevelamer Carbonate [Renvela] 1,600 mg PO TID 03/15/19 [History] Budesonide/Formoterol [Symbicort 160-4.5 MCG] mg INH ASDIRECTED PRN 03/27/19 [ History] Past Medical History Other HEENT History: Bilateral hearing aids, wears glasses, upper and lower denture Cardiovascular History: Reports: High Cholesterol, Hypertension, [place] Respiratory History: Reports: SOB Other Respiratory History: SOB with excertion Gastrointestinal History: Reports: GERD, Hepatitis Other Gastrointestinal History: Hepatitis C with treatment Genitourinary History: Reports: Dialysis, Renal Disease Musculoskeletal History: Reports: Fracture, Other (See Below) Other Musculoskeletal History: hx fx collarbone Neurological History: Reports: Other (See Below) Other Neuro History: Restless Legs Psychiatric History: Reports: None Endocrine/Metabolic History: Reports: Diabetes, Type II, Obesity/BMI 30+ Hematologic History: Reports: Anticoagulation Therapy, Blood Transfusion(s) Immunologic History: Reports: None Oncologic (Cancer) History: Reports: None Dermatologic History: Reports: None - Infectious Disease History Infectious Disease History: Reports: Measles, Mumps - Past Surgical History Head Surgeries/Procedures: Reports: None HEENT Surgical History: Reports: Adenoidectomy, Oral Surgery, Tonsillectomy Cardiovascular Surgical History: Reports: Coronary Artery Stent Other Cardiovascular Surgeries/Procedures: Stenting 15 yrs ago [place] [id number], [place] stenting [place] 09/2014 GI Surgical History: Reports: Colonoscopy Other GI Surgeries/Procedures: Liver Biopsy 10 yrs ago Male Surgical History: Reports: Vasectomy Social & Family History - Family History Family Medical History: Noncontributory - Tobacco Use Smoking Status *Q: Current Every Day Smoker Years of Tobacco use: 40 Packs/Tins Daily: 0.5 - Caffeine Use Caffeine Use: Reports: None - Recreational Drug Use Recreational Drug Use: No ED ROS GENERAL - Review of Systems Review Of Systems: ROS reveals no pertinent complaints other than HPI. ED EXAM, GENERAL - Physical Exam Exam: See Below (See dictation) Course - Vital Signs Last Recorded V/S: Last Vital Signs Temp 36.8 C 03/27/19 22:42 Pulse 102 H 03/27/19 23:05 Resp 24 H 03/27/19 23:05 BP 158/74 H 03/27/19 23:05 Pulse Ox 97 03/27/19 23:05 - Orders/Labs/Meds Orders: Active Orders 24 hr Category Date Time Status Cardiac Monitoring [RC] . DIRECTED Care 03/27/19 21:07 Active EKG Documentation Completion [RC] STAT Care 03/27/19 21:07 Active Nitroglycerin/D5W [Nitroglycerin 25 MG/D5W 250 ML] Med 03/27/19 21:15 Active 25 mg in 250 ml IV TITRATE Sodium Chloride 0.9% [Normal Saline] 1,000 ml Med 03/27/19 21:15 Active IV ASDIRECTED Saline Lock Insert [OM.PC] Stat Oth 03/27/19 21:13 Ordered Medication Orders Nitroglycerin/Dextrose (Nitroglycerin 25 Mg/D5w 250 Ml) 25 mg in 250 mls @ 3 mls/hr IV TITRATE CÉSAR; Protocol Last Titration: 03/27/19 22:56 Dose: 10 mcg/min, 6 mls/hr Titration: 03/27/19 22:32 Dose: 20 mcg/min, 12 mls/hr Titration: 03/27/19 22:18 Dose: 15 mcg/min, 9 mls/hr Titration: 03/27/19 21:37 Dose: 10 mcg/min, 6 mls/hr Titration: 03/27/19 21:15 Dose: 20 mcg/min, 12 mls/hr Admin: 03/27/19 21:15 Dose: 5 mcg/min, 3 mls/hr Sodium Chloride (Normal Saline) 1,000 mls @ 125 mls/hr IV ASDIRECTED CÉSAR Last Admin: 03/27/19 21:15 Dose: 125 mls/hr Labs: Laboratory Tests 03/27/19 03/27/19 03/27/19 Range/Units 21:10 21:10 21:10 WBC 5.01 (4.0-11.0) K/uL RBC 2.87 L (4.50-5.90) M/uL Hgb 9.4 L (13.0-17.0) g/dL Hct 29.4 L (38.0-50.0) % MCV 102.4 H (80.0-98.0) fL MCH 32.8 H (27.0-32.0) pg MCHC 32.0 (31.0-37.0) g/dL RDW Std Deviation 62.5 H (28.0-62.0) fl RDW Coeff of Candido 17 H (11.0-15.0) % Plt Count 101 L (150-400) K/uL MPV 9.90 (7.40-12.00) fL Neut % (Auto) 76.2 (48.0-80.0) % Lymph % (Auto) 13.4 L (16.0-40.0) % [place] % (Auto) 8.2 (0.0-15.0) % Eos % (Auto) 1.8 (0.0-7.0) % Baso % (Auto) 0.4 (0.0-1.5) % Neut # (Auto) 3.8 (1.4-5.7) K/uL Lymph # (Auto) 0.7 (0.6-2.4) K/uL [place] # (Auto) 0.4 (0.0-0.8) K/uL Eos # (Auto) 0.1 (0.0-0.7) K/uL Baso # (Auto) 0.0 (0.0-0.1) K/uL Nucleated RBC % 0.0 /100WBC Nucleated RBCs # 0 K/uL INR 1.01 Sodium 143 (136-148) mmol/L Potassium 4.0 (3.5-5.1) mmol/L Chloride 101 (98-107) mmol/L Carbon Dioxide 28.9 (21.0-32.0) mmol/L BUN 47 H (7.0-18.0) mg/dL Creatinine 8.1 H (0.8-1.3) mg/dL Est Cr Clr Drug Dosing 7.80 mL/min Estimated GFR (MDRD) 6.7 ml/min Glucose 178 H (74-106) mg/dL Calcium 10.7 H (8.5-10.1) mg/dL Total Bilirubin 0.3 (0.2-1.0) mg/dL AST 15 (15-37) IU/L ALT 24 (14-63) IU/L Alkaline Phosphatase 133 H (46-116) U/L Troponin I < 0.050 (0.000-0.056) ng/mL B-Natriuretic Peptide (<100) PG/ML Total Protein 7.8 (6.4-8.2) g/dL Albumin 4.0 (3.4-5.0) g/dL Globulin 3.8 (2.6-4.0) g/dL Albumin/Globulin Ratio 1.1 (0.9-1.6) 03/27/19 Range/Units 21:10 WBC (4.0-11.0) K/uL RBC (4.50-5.90) M/uL Hgb (13.0-17.0) g/dL Hct (38.0-50.0) % MCV (80.0-98.0) fL MCH (27.0-32.0) pg MCHC (31.0-37.0) g/dL RDW Std Deviation (28.0-62.0) fl RDW Coeff of Candido (11.0-15.0) % Plt Count (150-400) K/uL MPV (7.40-12.00) fL Neut % (Auto) (48.0-80.0) % Lymph % (Auto) (16.0-40.0) % [place] % (Auto) (0.0-15.0) % Eos % (Auto) (0.0-7.0) % Baso % (Auto) (0.0-1.5) % Neut # (Auto) (1.4-5.7) K/uL Lymph # (Auto) (0.6-2.4) K/uL [place] # (Auto) (0.0-0.8) K/uL Eos # (Auto) (0.0-0.7) K/uL Baso # (Auto) (0.0-0.1) K/uL Nucleated RBC % /100WBC Nucleated RBCs # K/uL INR Sodium (136-148) mmol/L Potassium (3.5-5.1) mmol/L Chloride (98-107) mmol/L Carbon Dioxide (21.0-32.0) mmol/L BUN (7.0-18.0) mg/dL Creatinine (0.8-1.3) mg/dL Est Cr Clr Drug Dosing mL/min Estimated GFR (MDRD) ml/min Glucose (74-106) mg/dL Calcium (8.5-10.1) mg/dL Total Bilirubin (0.2-1.0) mg/dL AST (15-37) IU/L ALT (14-63) IU/L Alkaline Phosphatase (46-116) U/L Troponin I (0.000-0.056) ng/mL B-Natriuretic Peptide 208 H (<100) PG/ML Total Protein (6.4-8.2) g/dL Albumin (3.4-5.0) g/dL Globulin (2.6-4.0) g/dL Albumin/Globulin Ratio (0.9-1.6) Meds: Medications Generic Name Dose Route Start Last Admin Trade Name Freq PRN Reason Stop Dose Admin Nitroglycerin/Dextrose 25 mg in 250 mls @ 3 mls/hr 03/27/19 21:15 03/27/19 22 :56 Nitroglycerin 25 Mg/D5w 250 Ml IV 10 mcg/min TITRATE CÉSAR 6 mls/hr Titration Protocol 5 MCG/MIN Sodium Chloride 1,000 mls @ 125 mls/hr 03/27/19 21:15 03/27/19 21:15 Normal Saline IV 125 mls/hr ASDIRECTED CÉSAR Administration Discontinued Medications Generic Name Dose Route Start Last Admin Trade Name Freq PRN Reason Stop Dose Admin Aspirin 243 mg 03/27/19 21:07 03/27/19 21:05 Aspirin PO 03/27/19 21:08 243 mg ONETIME ONE Administration Labetalol HCl 20 mg 03/27/19 21:23 03/27/19 21:30 Normodyne IVPUSH 03/27/19 21:24 20 mg ONETIME ONE Administration Protocol Labetalol HCl Confirm 03/27/19 21:25 03/27/19 21:35 Normodyne Administered 03/27/19 21:26 Not Given Dose 100 mg .ROUTE .STK-MED ONE Labetalol HCl Confirm 03/27/19 22:49 03/27/19 22:58 Normodyne Administered 03/27/19 22:50 Not Given Dose 100 mg .ROUTE .STK-MED ONE Labetalol HCl 40 mg 03/27/19 22:47 03/27/19 22:56 Normodyne IVPUSH 03/27/19 22:48 40 mg ONETIME ONE Administration Protocol Morphine Sulfate 2 mg 03/27/19 21:07 03/27/19 21:15 Morphine IVPUSH 03/27/19 21:08 2 mg ONETIME ONE Administration Ondansetron HCl 4 mg 03/27/19 21:07 03/27/19 21:10 Zofran IVPUSH 03/27/19 21:08 4 mg ONETIME ONE Administration Departure - Departure Time of Disposition: 23:40 Disposition: DC/Tfer to Acute Hospital 02 Condition: Good Clinical Impression: Chest pain, Chronic renal failure, Hypertension - Discharge Information Referrals: Yosef العراقي MD [Primary Care Provider] - Forms: ED Department Discharge - My Orders Last 24 Hours: My Active Orders 03/27/19 21:07 Cardiac Monitoring [RC] . DIRECTED EKG Documentation Completion [RC] STAT 03/27/19 21:13 Saline Lock Insert [OM.PC] Stat 03/27/19 21:15 Nitroglycerin/D5W [Nitroglycerin 25 MG/D5W 250 ML] 25 mg in 250 ml IV TITRATE Sodium Chloride 0.9% [Normal Saline] 1,000 ml IV ASDIRECTED - Assessment/Plan Last 24 Hours: My Active Orders 03/27/19 21:07 Cardiac Monitoring [RC] . DIRECTED EKG Documentation Completion [RC] STAT 03/27/19 21:13 Saline Lock Insert [OM.PC] Stat 03/27/19 21:15 Nitroglycerin/D5W [Nitroglycerin 25 MG/D5W 250 ML] 25 mg in 250 ml IV TITRATE Sodium Chloride 0.9% [Normal Saline] 1,000 ml IV ASDIRECTED
[2019-03-27] MEDS ORDERED: Labetalol 100 MG/20 ML MDV IVPUSH ONE ×2 (21:23→22:47)
[2019-03-27] MEDS ORDERED: Labetalol 100 MG/20 ML MDV ONE ×2 (21:25→22:49)
--- NOTE | 2019-03-27 21:31 | CR ---
TECHNIQUE: Portable AP chest. INDICATION: Chest pain, dyspnea. COMPARISON: 03/15/2019. FINDINGS: Previously seen bilateral lower lung interstitial opacities have resolved. Lungs are now clear. Heart size and pulmonary vascularity normal. No effusion or pneumothorax. Healed right clavicle fracture. IMPRESSION: No acute chest findings. Dictated by Dov Polanco MD @ 03/27/2019 9:29:49 PM Dictated by: Dov Polanco MD @ 03/27/2019 21:29:53 (Electronically Signed)
[2019-03-27 21:46] LABS: CHLORIDE,CL 101 mmol/L (98-107); SODIUM,NA 143 mmol/L (136-148)
[2019-03-27] MEDS ORDERED: Nitroglycerin 2% Oint 1 GM UD Packet TOP ONE (23:58)
[2019-03-28] MEDS ORDERED: Labetalol 100 MG/20 ML MDV IVPUSH ONE (00:16)
[2019-03-28 00:34] VITALS: BP 182/83
== END 2019-03-28 00:41 ==
LOC: MW.ED 20:49
DX: I24.9 Acute ischemic heart disease, unspecified (principal); I12.9 Hypertensive chronic kidney disease with stage 1 through stage 4 chronic kidney disease, or unspecified chronic kidney disease; N18.9 Chronic kidney disease, unspecified; I25.2 Old myocardial infarction; Z99.2 Dependence on renal dialysis; E11.22 Type 2 diabetes mellitus with diabetic chronic kidney disease; E66.9 Obesity, unspecified; K21.9 Gastro-esophageal reflux disease without esophagitis; Z79.899 Other long term (current) drug therapy; Z98.890 Other specified postprocedural states; Z95.5 Presence of coronary angioplasty implant and graft; Z79.82 Long term (current) use of aspirin; Z88.8 Allergy status to other drugs, medicaments and biological substances
CPT/HCPCS: 36415; 71045; 80053; 83880; 84484; 85025; 85610; 93005; 96361; 96365; 96366; 96375; 96376; 99285; A9270; J2270; J2405; J3490; J7040; 99284

== ENCOUNTER 2019-05-14 03:06 | Emergency (ER) | payer OTHER ==
[2019-05-14] MEDS ORDERED: Rocuronium 100 MG/10 ML MDV IV ONE (03:07)
[2019-05-14] MEDS ORDERED: Succinylcholine 200 MG/10 ML MDV IV ONE (03:07)
[2019-05-14] MEDS ORDERED: Etomidate 2 MG/ML 20 ML SDV IVPUSH ONE (03:07)
--- NOTE | 2019-05-14 03:12 | EDM.PDOC ---
ED HPI GENERAL MEDICAL PROBLEM - General Stated Complaint: GENERAL CONFUSION Time Seen by Provider: 05/14/19 03:10 - History of Present Illness INITIAL COMMENTS - FREE TEXT/NARRATIVE: HISTORY AND PHYSICAL: History of present illness: The patient is a 64-year-old male with a history of hypertension peripheral vascular disease --stent in one of his lower extremities ---coronary artery disease with stent more than 10 years ago chronic renal disease who is on hemodialysis here at our dialysis center with a history of tobacco use as well as an undiagnosed respiratory disease for which he uses inhalers and who presents today with complaints of a diffuse headache that started 24 hours ago that has not responded to Aleve [id number] as well as loose diarrhea X times yesterday and 3 episodes of vomiting with some diffuse upper abdominal pain. The patient was exposed to his grandson who had some gastroenteritis and his headache started 24 hours ago and the GI symptoms soon thereafter. He has not had a fever at home chest pain or shortness of breath and does not make much urine as he is on dialysis. He is due for dialysis this morning in approximately 3 hours and his last dialysis was as scheduled this past . He does get dialyzed for both numbers and fluid. He says that despite the vomiting he was able to take all of his oral medications yesterday. He did try to take some Pepto-Bismol last evening. The daughter thought he might be getting dehydrated and tried to push some Powerade which he was able to tolerate. The daughter says that he has exhibited some mild confusion this morning in that he got in his car left his cell phone and drove here to the hospital because he thought he was due for his dialysis and his alarm did not go off but he is not due for another 3 hours. The patient says that he just got mistaken with respect to the time. He also told the daughter when she arrived here that he had put the car keys in one place when they were not in that location and he is normally much sharper than this per the daughter. Here in the ED he is able to answer questions and give appropriate answers and the daughter says it is just a subtle confusion but is definitely present. He has not had any recent trauma or falls in the last several days and has no extremity numbness weakness or neurosensory changes. He says his headache is all over and is not in one location and he has no midline back or neck pain. The patient denies any chest pain The patient is on hemodialysis on Thursday and Saturdays and has a fistula in his forearm. Review of systems: As per history of present illness and below otherwise all systems reviewed and negative. Past medical history: As per history of present illness and as reviewed below otherwise noncontributory. Surgical history: As per history of present illness and as reviewed below otherwise noncontributory. Social history: No reported history of drug or alcohol abuse. Family history: As per history of present illness and as reviewed below otherwise noncontributory. Physical exam: General: Well-developed well-nourished man who is nontoxic and vital signs are noted by me. He prefers to keep his eyes closed but he is awake and oriented and very cooperative. He is speaking clearly and easily. HEENT: Atraumatic, normocephalic, pupils reactive, negative for conjunctival pallor or scleral icterus, mucous membranes tacky, throat clear, neck supple, nontender, trachea midline. Lungs: Clear to auscultation, breath sounds equal bilaterally, chest nontender. Heart: S1S2, regular, negative for clicks, rubs, or JVD. Abdomen: Soft, nondistended, nontender. There is no tympany on percussion and the patient says he does not feel bloated and bowel sounds are hypoactive. Negative for masses or hepatosplenomegaly. Pelvis: Stable nontender. Genitourinary: Deferred. Rectal: Deferred. Extremities: Atraumatic, negative for cords or calf pain. There is trace pedal edema bilaterally and there is a fistula appreciated in the right forearm with a positive thrill. Neurovascular unremarkable. Neuro: Awake, alert, oriented. Cranial nerves II through XII unremarkable. Cerebellum unremarkable. Motor and sensory unremarkable throughout. Exam nonfocal. Skin: There is no diaphoresis and turgor is normal Diagnostics: EKG CBC CMP lactate INR TSH amylase lipase stool for study chest x-ray 2 Therapeutics: IV O2 monitor IV fluids Zofran Toradol Ativan Lasix, please see below note for further information and the [employer]OBILE [employer]'s note. 0445: We difficulty getting the IV and the patient was very agitated with that and then said that he has restless leg syndrome and was very restless and we opted to give him 0.5 mg of Ativan to go to CT for his head CT and his chest x- ray. While he was down and CAT scan was called by nursing to say that he was very agitated and would not sit still so we brought him back up to the ED and on my evaluation of him upon return he clearly is in pulmonary edema with coarse rales throughout all lung barney and increased work of breathing diaphoresis and pallor. O2 sats were in the 60s and this is a complete change from when the patient left the ED to go for his testing. I cautioned the family and the patient when he came in that in managing his dehydration it would be a delicate line and we did give him fluids and his had no acute change in the opposite direction with fluid overload. Anesthesia was called and the family was talked to about what was going on and that he would need to be flown to [facility] in [place] for emergent dialysis and then we could regroup and further address why he came here which was the diarrhea and the headache. He never had his CT of the head performed and we did do a pre-intubation chest x- ray as well as a post intubation chest x-ray. 0510: I set up for intubation and anesthesia arrived prior to my performance of this procedure and please see their note for easy intubation of this patient without complication. A post intubation chest x-ray was performed and I will check that film. Flight team has been notified and is in route here. The patient will now be given Lasix and I did discuss with the and daughter what was going on prior to all of these events and they went home to get supplies for the transfer. They are aware that the patient will likely improve from a pulmonary standpoint once we're able to dialyze the fluid off. I discussed this case with Dr. Mcdonald at [facility] in [place] at 5:07 AM and he accepts the patient for transfer. Flight team is in route. Please note that the patient never produced a stool for study and the CAT scan of the head was never performed and Dr. Mcdonald is aware of this. He says that he will address those issues when the patient arrives. Critical care time excluding procedures :35min Impression: Headache with mild confusion, vomiting and diarrhea, history of end-stage renal disease on dialysis; acute pulmonary edema with respiratory distress/ respiratory failure Definitive disposition and diagnosis as appropriate pending reevaluation and review of above. headache Pain Score (Numeric/FACES): 10 - Related Data Allergies Allergy/AdvReac Type Severity Reaction Status Date / Time trazodone Allergy Itching Verified 05/14/19 03:13 Bandaids Allergy Itching Uncoded 05/14/19 03:13 Home Meds: Home Meds Albuterol [Ventolin HFA] 8 gm INH Q6H PRN 05/22/15 [History] Ascorbic Acid [C-1000] 2,000 mg PO BID 05/22/15 [History] Bumetanide [Bumex] 1 mg PO DAILY 05/22/15 [History] Melatonin 6 mg PO BEDTIME 05/22/15 [History] Ranitidine [Zantac] 150 mg PO BID 05/22/15 [History] hydrALAZINE [Apresoline] 25 mg PO BID 05/22/15 [History] rOPINIRole [Requip] 2 mg PO BEDTIME 05/22/15 [History] Aspirin [Adult Low Dose Aspirin EC] 81 mg PO BEDTIME 05/23/15 [History] Nitroglycerin [Nitro-Dur 0.3 MG/Hr] 1 patch TD DAILY 05/23/15 [History] Nitroglycerin [Nitrostat] 0.4 mg SL ASDIRECTED PRN 05/23/15 [History] Glucosamine [Glucosamine Sulfate] 1,000 mg PO BID 07/28/15 [History] Multivitamin [Daily Multiple Vitamin] 1 tab PO DAILY 07/28/15 [History] Metoprolol Tartrate 100 mg PO BID 11/03/17 [History] Acetaminophen/HYDROcodone [Nebo 325-7.5 MG] 1 tab PO Q6H PRN 03/15/19 [History] Calcium Acetate [PhosLo] 667 mg PO TID 03/15/19 [History] Clopidogrel [Plavix] 75 mg PO DAILY 03/15/19 [History] Fenofibrate 54 mg PO DAILY 03/15/19 [History] Glycopyrrolate/Formoterol Fum [Bevespi Aerosphere Inhaler] 10.7 gm IH BID [History] Isosorbide Mononitrate [Imdur] 60 mg PO BID 03/15/19 [History] NIFEdipine [Procardia Xl] 60 mg PO BID 03/15/19 [History] Pantoprazole Sodium [Protonix] 20 mg PO DAILY 03/15/19 [History] Sevelamer Carbonate [Renvela] 3 tab PO TID 03/15/19 [History] Budesonide/Formoterol [Symbicort 160-4.5 MCG] mg INH ASDIRECTED PRN 03/27/19 [ History] Irbesartan 150 mg PO DAILY 05/14/19 [History] Past Medical History Other HEENT History: Bilateral hearing aids, wears glasses, upper and lower denture Cardiovascular History: Reports: High Cholesterol, Hypertension, [place] Respiratory History: Reports: SOB Other Respiratory History: SOB with excertion Gastrointestinal History: Reports: GERD, Hepatitis Other Gastrointestinal History: Hepatitis C with treatment Genitourinary History: Reports: Dialysis, Renal Disease Musculoskeletal History: Reports: Fracture, Other (See Below) Other Musculoskeletal History: hx fx collarbone Neurological History: Reports: Other (See Below) Other Neuro History: Restless Legs Psychiatric History: Reports: None Endocrine/Metabolic History: Reports: Diabetes, Type II, Obesity/BMI 30+ Hematologic History: Reports: Anticoagulation Therapy, Blood Transfusion(s) Immunologic History: Reports: None Oncologic (Cancer) History: Reports: None Dermatologic History: Reports: None - Infectious Disease History Infectious Disease History: Reports: Measles, Mumps - Past Surgical History Head Surgeries/Procedures: Reports: None HEENT Surgical History: Reports: Adenoidectomy, Oral Surgery, Tonsillectomy Cardiovascular Surgical History: Reports: Coronary Artery Stent Other Cardiovascular Surgeries/Procedures: Stenting 15 yrs ago [place] [id number], [place] stenting [place] 09/2014 GI Surgical History: Reports: Colonoscopy Other GI Surgeries/Procedures: Liver Biopsy 10 yrs ago Male Surgical History: Reports: Vasectomy Social & Family History - Family History Family Medical History: Noncontributory - Caffeine Use Caffeine Use: Reports: None ED ROS GENERAL - Review of Systems Review Of Systems: ROS reveals no pertinent complaints other than HPI. ED EXAM, GENERAL - Physical Exam Exam: See Below (See dictation) Course - Vital Signs Last Recorded V/S: Last Vital Signs Temp 37.5 C 05/14/19 03:10 Pulse 98 05/14/19 03:10 Resp 18 05/14/19 03:10 BP 164/119 H 05/14/19 03:10 Pulse Ox - Orders/Labs/Meds Orders: Active Orders 24 hr Category Date Time Status Blood Glucose Check, Bedside [RC] ONETIME Care 05/14/19 03:27 Active Cardiac Monitoring [RC] . DIRECTED Care 05/14/19 03:27 Active EKG Documentation Completion [RC] STAT Care 05/14/19 03:27 Active Oxygen Therapy, ED [RC] ASDIRECTED Care 05/14/19 03:27 Active Pulse Oximetry [RC] ASDIRECTED Care 05/14/19 03:27 Active Abdomen 1V Upright [CR] Stat Exams 05/14/19 03:28 Stop Req Chest 1V Frontal [CR] Stat Exams 05/14/19 05:04 Ordered Head wo Cont [CT] Stat Exams 05/14/19 03:28 Stop Req CULTURE STOOL + CAMPY+SHIGATOX [RM] Stat Lab 05/14/19 03:29 Ordered Sodium Chloride 0.9% [Saline Flush] Med 05/14/19 03:28 Active 10 ml FLUSH ASDIRECTED PRN Sodium Chloride 0.9% [Saline Flush] Med 05/14/19 03:28 Active 2.5 ml FLUSH ASDIRECTED PRN Saline Lock Insert [OM.PC] Stat Oth 05/14/19 03:26 Ordered Medication Orders Sodium Chloride (Saline Flush) 10 ml FLUSH ASDIRECTED PRN PRN Reason: Keep Vein Open Last Admin: 05/14/19 04:06 Dose: 10 ml Sodium Chloride (Saline Flush) 2.5 ml FLUSH ASDIRECTED PRN PRN Reason: Keep Vein Open Last Admin: 05/14/19 04:06 Dose: 2.5 ml Labs: Laboratory Tests 05/14/19 05/14/19 05/14/19 Range/Units 03:57 03:57 03:57 WBC 5.36 (4.0-11.0) K/uL RBC 3.38 L (4.50-5.90) M/uL Hgb 10.7 L (13.0-17.0) g/dL Hct 32.2 L (38.0-50.0) % MCV 95.3 (80.0-98.0) fL MCH 31.7 (27.0-32.0) pg MCHC 33.2 (31.0-37.0) g/dL RDW Std Deviation 56.5 (28.0-62.0) fl RDW Coeff of Candido 17 H (11.0-15.0) % Plt Count 95 L (150-400) K/uL MPV 10.10 (7.40-12.00) fL Neut % (Auto) 86.2 H (48.0-80.0) % Lymph % (Auto) 7.6 L (16.0-40.0) % Bell % (Auto) 5.6 (0.0-15.0) % Eos % (Auto) 0.4 (0.0-7.0) % Baso % (Auto) 0.2 (0.0-1.5) % Neut # (Auto) 4.6 (1.4-5.7) K/uL Lymph # (Auto) 0.4 L (0.6-2.4) K/uL Bell # (Auto) 0.3 (0.0-0.8) K/uL Eos # (Auto) 0.0 (0.0-0.7) K/uL Baso # (Auto) 0.0 (0.0-0.1) K/uL INR 1.04 Lactate (0.20-2.00) mmol/L Sodium 138 (136-148) mmol/L Potassium 5.4 H (3.5-5.1) mmol/L Chloride 100 (98-107) mmol/L Carbon Dioxide 23.6 (21.0-32.0) mmol/L BUN 50 H (7.0-18.0) mg/dL Creatinine 8.5 H (0.8-1.3) mg/dL Est Cr Clr Drug Dosing 7.71 mL/min Estimated GFR (MDRD) 6.3 ml/min Glucose 140 H (74-106) mg/dL Calcium 11.0 H (8.5-10.1) mg/dL Total Bilirubin 0.8 (0.2-1.0) mg/dL AST 29 (15-37) IU/L ALT 24 (14-63) IU/L Alkaline Phosphatase 91 (46-116) U/L Troponin I < 0.050 (0.000-0.056) ng/mL Total Protein 7.6 (6.4-8.2) g/dL Albumin 4.0 (3.4-5.0) g/dL Globulin 3.6 (2.6-4.0) g/dL Albumin/Globulin Ratio 1.1 (0.9-1.6) Amylase 63 (25-115) U/L Lipase 197 (73-393) U/L TSH 3rd Generation 2.76 (0.36-3.74) uIU/mL 05/14/19 Range/Units 03:57 WBC (4.0-11.0) K/uL RBC (4.50-5.90) M/uL Hgb (13.0-17.0) g/dL Hct (38.0-50.0) % MCV (80.0-98.0) fL MCH (27.0-32.0) pg MCHC (31.0-37.0) g/dL RDW Std Deviation (28.0-62.0) fl RDW Coeff of Candido (11.0-15.0) % Plt Count (150-400) K/uL MPV (7.40-12.00) fL Neut % (Auto) (48.0-80.0) % Lymph % (Auto) (16.0-40.0) % Bell % (Auto) (0.0-15.0) % Eos % (Auto) (0.0-7.0) % Baso % (Auto) (0.0-1.5) % Neut # (Auto) (1.4-5.7) K/uL Lymph # (Auto) (0.6-2.4) K/uL Bell # (Auto) (0.0-0.8) K/uL Eos # (Auto) (0.0-0.7) K/uL Baso # (Auto) (0.0-0.1) K/uL INR Lactate 1.3 (0.20-2.00) mmol/L Sodium (136-148) mmol/L Potassium (3.5-5.1) mmol/L Chloride (98-107) mmol/L Carbon Dioxide (21.0-32.0) mmol/L BUN (7.0-18.0) mg/dL Creatinine (0.8-1.3) mg/dL Est Cr Clr Drug Dosing mL/min Estimated GFR (MDRD) ml/min Glucose (74-106) mg/dL Calcium (8.5-10.1) mg/dL Total Bilirubin (0.2-1.0) mg/dL AST (15-37) IU/L ALT (14-63) IU/L Alkaline Phosphatase (46-116) U/L Troponin I (0.000-0.056) ng/mL Total Protein (6.4-8.2) g/dL Albumin (3.4-5.0) g/dL Globulin (2.6-4.0) g/dL Albumin/Globulin Ratio (0.9-1.6) Amylase (25-115) U/L Lipase (73-393) U/L TSH 3rd Generation (0.36-3.74) uIU/mL Meds: Medications Generic Name Dose Route Start Last Admin Trade Name Freq PRN Reason Stop Dose Admin Sodium Chloride 10 ml 05/14/19 03:28 05/14/19 04:06 Saline Flush FLUSH 10 ml ASDIRECTED PRN Administration Keep Vein Open Sodium Chloride 2.5 ml 05/14/19 03:28 05/14/19 04:06 Saline Flush FLUSH 2.5 ml ASDIRECTED PRN Administration Keep Vein Open Discontinued Medications Generic Name Dose Route Start Last Admin Trade Name Freq PRN Reason Stop Dose Admin Fentanyl Confirm 05/14/19 05:07 Sublimaze Administered 05/14/19 05:08 Dose 100 mcg .ROUTE .STK-MED ONE Furosemide 60 mg 05/14/19 05:08 Lasix IVPUSH 05/14/19 05:09 NOW ONE Sodium Chloride 1,000 mls @ 999 mls/hr 05/14/19 03:28 05/14/19 04:06 Normal Saline IV 05/14/19 04:28 999 mls/hr STAT ONE Administration Ketorolac Tromethamine 30 mg 05/14/19 03:28 05/14/19 04:28 Toradol IVPUSH 05/14/19 03:29 30 mg ONETIME ONE Administration Lorazepam 0.5 mg 05/14/19 04:22 05/14/19 04:27 Ativan IVPUSH 05/14/19 04:23 0.5 mg ONETIME ONE Administration Midazolam HCl Confirm 05/14/19 05:07 Versed 1 Mg/Ml Administered 05/14/19 05:08 Dose 2 mg .ROUTE .STK-MED ONE Ondansetron HCl 4 mg 05/14/19 03:28 05/14/19 04:28 Zofran IVPUSH 05/14/19 03:29 4 mg ONETIME ONE Administration Departure - Departure Time of Disposition: 05:17 Disposition: DC/Tfer to Acute Hospital 02 Condition: Critical Clinical Impression: Vomiting and diarrhea, Dehydration, Acute pulmonary edema Headache Qualifiers: Headache type: unspecified Headache chronicity pattern: acute headache Acute respiratory failure Qualifiers: Respiratory failure complication: hypoxia Qualified Code(s): J96.01 - Acute respiratory failure with hypoxia - Discharge Information Referrals: PCP,None [Primary Care Provider] - - My Orders Last 24 Hours: My Active Orders 05/14/19 03:26 Saline Lock Insert [OM.PC] Stat 05/14/19 03:27 Blood Glucose Check, Bedside [RC] ONETIME Cardiac Monitoring [RC] . DIRECTED EKG Documentation Completion [RC] STAT Oxygen Therapy, ED [RC] ASDIRECTED Pulse Oximetry [RC] ASDIRECTED 05/14/19 03:28 Abdomen 1V Upright [CR] Stat Head wo Cont [CT] Stat Sodium Chloride 0.9% [Saline Flush] 10 ml FLUSH ASDIRECTED PRN Sodium Chloride 0.9% [Saline Flush] 2.5 ml FLUSH ASDIRECTED PRN 05/14/19 03:29 CULTURE STOOL + CAMPY+SHIGATOX [RM] Stat 05/14/19 05:04 Chest 1V Frontal [CR] Stat - Assessment/Plan Last 24 Hours: My Active Orders 05/14/19 03:26 Saline Lock Insert [OM.PC] Stat 05/14/19 03:27 Blood Glucose Check, Bedside [RC] ONETIME Cardiac Monitoring [RC] . DIRECTED EKG Documentation Completion [RC] STAT Oxygen Therapy, ED [RC] ASDIRECTED Pulse Oximetry [RC] ASDIRECTED 05/14/19 03:28 Abdomen 1V Upright [CR] Stat Head wo Cont [CT] Stat Sodium Chloride 0.9% [Saline Flush] 10 ml FLUSH ASDIRECTED PRN Sodium Chloride 0.9% [Saline Flush] 2.5 ml FLUSH ASDIRECTED PRN 05/14/19 03:29 CULTURE STOOL + CAMPY+SHIGATOX [RM] Stat 05/14/19 05:04 Chest 1V Frontal [CR] Stat
[2019-05-14 03:20] VITALS: BP 164/119; PULSE 98
[2019-05-14] MEDS ORDERED: Ondansetron 4 MG/2 ML SDV IVPUSH ONE (03:28)
[2019-05-14] MEDS ORDERED: Sodium Chloride 0.9% 2.5 ML Syringe FLUSH PRN (03:28)
[2019-05-14] MEDS ORDERED: Ketorolac 30 MG/ML SDV IVPUSH ONE (03:28)
[2019-05-14] MEDS ORDERED: Sodium Chloride 0.9% 10 ML Syringe FLUSH PRN (03:28)
[2019-05-14] MEDS ORDERED: Sodium Chloride 0.9% 1,000 ML IV ONE (03:28)
[2019-05-14] MEDS ORDERED: LORazepam 2 MG/ML SDV IVPUSH ONE (04:22)
[2019-05-14 04:34] LABS: BLOOD UREA NITROGEN,BUN 50 mg/dL (7.0-18.0); CARBON DIOXIDE,CO2 23.6 mmol/L (21.0-32.0); CHLORIDE,CL 100 mmol/L (98-107); GLUCOSE RANDOM 140 mg/dL (74-106); LIPASE 197 U/L (73-393); SODIUM,NA 138 mmol/L (136-148)
[2019-05-14 04:37] LABS: POTASSIUM,K 5.4 mmol/L (3.5-5.1)
[2019-05-14] MEDS ORDERED: fentaNYL 100 MCG/2 ML SDV ONE ×2 (05:07→05:21)
[2019-05-14] MEDS ORDERED: Midazolam 1 MG/ML 2 ML SDV ONE ×2 (05:07→05:22)
[2019-05-14] MEDS ORDERED: Furosemide 40 MG/4 ML VIAL ONE (05:08)
[2019-05-14] MEDS ORDERED: Furosemide 40 MG/4 ML VIAL IVPUSH ONE (05:08)
--- NOTE | 2019-05-14 05:08 | CR ---
INDICATION: Shortness of breath TECHNIQUE: Chest radiograph 1 view COMPARISON: 03/27/2019 FINDINGS: Severe degradation of image quality noted due to body habitus. Mediastinum: The mediastinum is normal in appearance. Mild to moderate cardiomegaly is present and not significantly changed from prior exam. Lung: Moderate homogeneous airspace infiltrates are present bilaterally, likely due to cardiogenic or noncardiogenic pulmonary edema. No sign of pleural effusion seen. No pneumothorax is identified. IMPRESSIONS: 1. Moderate homogeneous airspace infiltrates are present bilaterally, likely due to cardiogenic or noncardiogenic pulmonary edema. 2. Mild to moderate cardiomegaly is present and not significantly changed from prior exam. Dictated by Thien Walker MD @ 05/14/2019 5:05:58 AM Dictated by: Thien Walker MD @ 05/14/2019 05:06:04 (Electronically Signed)
--- NOTE | 2019-05-14 05:25 | CR ---
INDICATION: Respiratory distress TECHNIQUE: Chest radiograph 1 view COMPARISON: 05/14/2019 FINDINGS: Moderate degradation of image quality noted due to body habitus. Mediastinum: The mediastinum is normal in appearance. [id number] cardiomegaly noted without change. The endotracheal tube tip is positioned 6.8 cm from the dennis. Lung: Bilateral airspace infiltrates are present without interval change. No pneumothorax is identified. IMPRESSION: 1. There has been no significant interval changes. Dictated by Thien Walker MD @ 05/14/2019 5:24:09 AM Dictated by: Thien Walker MD @ 05/14/2019 05:24:16 (Electronically Signed)
--- NOTE | 2019-05-14 05:39 | PCM.SN ---
- Free Text/Narrative Note: Called to the ER to assist with intubation. On my arrival nursing and Dr Castro are ventilating the patient with BVM 100% FiO2. RSI performed using the following: Pre-Intubation VS: HR 150's Sinus RR - 16 controlled/assist SpO2 - 70's BP - Etomidate 20mg IVP Rocuronium 10mg IVP Succinylcholine 100mg IVP DL with Liu 2 yields copious pink frothy fluid in the airway, suctioning performed, 7.5 cuffed ETT placed. + EtCO2, + BBS. HR - 120's Sinus BP- 146/89 RR - 14 Controlled SpO2 - 90-92% EtCO2 - 38 PIP - 31 Rocuronium 30mg IVP given for additional relaxation Versed 3mg IV given incrementally over 15 minutes for continued sedation Fentanyl 200mcg IV given incrementally over 15 minutes for continued sedation Vent settings RR - 14 TV 600 Peep - 8 PS - 15 FiO2 - 100%
== END 2019-05-14 06:07 ==
LOC: MW.ED 03:06
DX: J96.01 Acute respiratory failure with hypoxia (principal); J81.0 Acute pulmonary edema; E86.0 Dehydration; R19.7 Diarrhea, unspecified; R11.10 Vomiting, unspecified; R51 Headache; I12.0 Hypertensive chronic kidney disease with stage 5 chronic kidney disease or end stage renal disease; N18.6 End stage renal disease; E11.22 Type 2 diabetes mellitus with diabetic chronic kidney disease; E66.9 Obesity, unspecified; K21.9 Gastro-esophageal reflux disease without esophagitis; I25.10 Atherosclerotic heart disease of native coronary artery without angina pectoris; Z99.2 Dependence on renal dialysis; Z88.8 Allergy status to other drugs, medicaments and biological substances; Z79.82 Long term (current) use of aspirin; Z79.899 Other long term (current) drug therapy
CPT/HCPCS: 31500; 51702; 71045; 80053; 82150; 83605; 83690; 84443; 84484; 85025; 85610; 93005; 96361; 96374; 96375; 99291; J0330; J1885; J1940; J2060; J2405; J3490; J7040; 99285

== ENCOUNTER 2019-06-20 00:30 | Emergency (ER) | payer OTHER, MEDICARE ==
[2019-06-20] MEDS ORDERED: Sodium Chloride 0.9% 10 ML Syringe FLUSH PRN (00:46)
[2019-06-20] MEDS ORDERED: Ondansetron 4 MG/2 ML SDV IVPUSH ONE ×2 (00:46→00:56)
[2019-06-20] MEDS ORDERED: Sodium Chloride 0.9% 2.5 ML Syringe FLUSH PRN (00:46)
[2019-06-20] MEDS ORDERED: Aspirin 81 MG Tab.Chew PO ONE (00:46)
[2019-06-20] MEDS ORDERED: Nitroglycerin 0.4 MG Tab.SL SL PRN (00:46)
[2019-06-20] MEDS ORDERED: Pantoprazole 40 MG Vial ONE (00:53)
[2019-06-20] MEDS ORDERED: Ondansetron 4 MG/2 ML SDV ONE (00:53)
[2019-06-20] MEDS ORDERED: Pantoprazole 40 MG Vial IVPUSH ONE (00:55)
[2019-06-20] MEDS ORDERED: Pantoprazole 80 MG in Sodium Chloride 0.9% 10 ML IV ONE (00:55)
--- NOTE | 2019-06-20 00:55 | EDM.PDOC ---
ED HPI GENERAL MEDICAL PROBLEM - General Chief Complaint: Chest Pain Stated Complaint: CHEST PAIN, HIGH BLOOD PRESSURE Time Seen by Provider: 06/20/19 00:31 - History of Present Illness INITIAL COMMENTS - FREE TEXT/NARRATIVE: HISTORY AND PHYSICAL: History of present illness: The patient is a 64-year-old male with a history of hypertension end-stage renal disease for which he is on dialysis Thursday and Thursday, peripheral vascular disease, fluid retention, coronary artery disease with stent which was originally placed 10 years ago and then replaced about 4 months ago and restless leg syndrome who follows with Dr. العراقي in our clinic as well as Dr. Fox for cardiology and presents with 3 episodes of chest pain associated with hypertension this evening. The patient was last seen here in May by me and had an atypical presentation of proceeded to go into florid pulmonary edema and had to be sent to my not acute dialysis. Prior to that ED visit and transfer the patient had seen Dr. Fox and he cleaned out one of the patient's arteries and replaced one of his old stents but did not find any new disease or new stents. says that he was placed recently on any medication for his restless leg and she's concerned that his medication is affecting his blood pressure. She has a notebook which documents blood pressures mostly in the 110 to 120s systolic but then intermittently he will jump up to 170s-190s and have chest pain. The patient is a right forearm fistula which is slated to be evaluated for revision tomorrow in [place] but the was concerned this evening and thought she should bring him in here. Patient had 3 episodes of chest pain throughout the course of this evening starting at 8:30 PM, then another at 10:30 PM and then at 11:30 AM. A proximally an hour ago. On each episode his blood pressure was elevated to 170s to 190s/70s and he took one nitroglycerin each time which helped the pain and the blood pressure. On arrival here the patient says his pain is a 2/10 and it is located in the mid sternum and does not radiate. He says he does get sweaty and nauseated with these chest pain episodes and this is all very typical of his anginal chest pain. He has nitroglycerin at home to use as needed and uses it whenever he is having discomfort. Currently he is saying that his chest pain is an 8/10 in the ED because he is laying down and he says that the physician does affect his chest pain. He has no leg pain or swelling no abdominal pain and is currently not nauseated. He has no shortness of breath no fevers no chills and no upper respiratory symptoms. The pain he is experiencing currently is typical to his prior angina and it is not new or different and it is currently not radiating. Please note that the patient says that with each episode of chest pain he had an episode of emesis which was not black or bloody. He's had no black or bloody stools the says that about 4 days ago he had an episode of vomiting that looked similar to what we are seeing here in the ED which is maroon in color. The patient says that on the same day he had that episode of vomiting his stool did look dark but then it became more normal in color over the last several days Review of systems: As per history of present illness and below otherwise all systems reviewed and negative. Past medical history: As per history of present illness and as reviewed below otherwise noncontributory. Surgical history: As per history of present illness and as reviewed below otherwise noncontributory. Social history: No reported history of drug or alcohol abuse. Family history: As per history of present illness and as reviewed below otherwise noncontributory. Physical exam: General: Well-developed well-nourished man who is nontoxic and vital signs are noted by me. He is interactive and conversational here HEENT: Atraumatic, normocephalic, pupils reactive, negative for conjunctival pallor or scleral icterus, mucous membranes moist, throat clear, neck supple, nontender, trachea midline. Lungs: Clear to auscultation, breath sounds equal bilaterally, chest nontender. No wheezing stridor or work of breathing and no rales are appreciated Heart: S1S2, regular, negative for clicks, rubs, or JVD. Abdomen: Soft, nondistended, nontender. Negative for masses or hepatosplenomegaly. Negative for costovertebral tenderness. Pelvis: Stable nontender. Genitourinary: Deferred. Rectal: Tone is normal without any masses and there is hard stool in the vault which is medium brown in color without melena or blackness to it and it is Hemoccult positive Extremities: Atraumatic, negative for cords or calf pain. Neurovascular unremarkable. No pedal edema or leg asymmetry. The patient does have a fistula for dialysis in his right forearm with a positive thrill Neuro: Awake, alert, oriented. Cranial nerves II through XII unremarkable. Cerebellum unremarkable. Motor and sensory unremarkable throughout. Exam nonfocal. Skin: The patient has no diaphoresis normal turgor and no evidence of any overt rashes or lesions Diagnostics: EKG CBC CMP troponin BNP INR chest x-ray type and screen Therapeutics: IV O2 monitor Zofran Protonix bolus and drip nitroglycerin sublingual 1, Nitropaste I will hold the aspirin as the patient is having vomiting of what looks like maroon colored fluid Please note that after my initial evaluation I was called back into the room by nursing after Zofran was given and the patient is having an episode of vomiting which looks maroon blood in character. says that when he had vomiting 4 days ago it look like this as well but then he had no vomiting until this evening when he had the episodes of chest pain. The patient tells me that with each episode of chest pain this evening he had an episode of vomiting that did not look like this and this is the first time 4 days this has occurred. Patient's hemoglobin today is 7.9 and when I looked at the prior to lab values in the computer it was 11.0 on June 09 and 10.7 on May 14 The patient says that after the episode of vomiting his chest discomfort is improved 0115: he is now currently rating his chest pain as a 1/10 on my reevaluation area his blood pressure has only slightly improved but I discussed with the patient and at bedside that I am not going to be aggressive with lowering his blood pressure to where his normal usually is at 110-120 systolic in light of the hematemesis and GI bleed. 0130: Patient is supposed to have a Nitro-Dur patch in place and he said that he removed earlier this evening. I spoken to Dr. Taylor at [facility] and he accepts the patient for transfer and would like me to place half an inch of nitro paste on for his elevated blood pressure. He is aware of this case and agrees it is likely GI resident cardiology but understands our limitations here. We will forward all images and lab results to the receiving hospital and I discussed at length with patient and at bedside the need for transfer and they are agreeable. EMS has been contacted for ground transport. Impression: Chest pain with history of angina, upper GI bleed, rule out symptomatic anemia History of end-stage renal disease on dialysis and hypertension, coronary artery disease with stent Definitive disposition and diagnosis as appropriate pending reevaluation and review of above. chest area Pain Score (Numeric/FACES): 4 - Related Data Allergies Allergy/AdvReac Type Severity Reaction Status Date / Time trazodone Allergy Itching Verified 06/20/19 00:35 Bandaids Allergy Itching Uncoded 06/20/19 00:35 Home Meds: Home Meds Ascorbic Acid [C-1000] 1,000 mg PO BID 05/22/15 [History] Bumetanide [Bumex] 1 mg PO DAILY 05/22/15 [History] Melatonin 3 mg PO BEDTIME 05/22/15 [History] Ranitidine [Zantac] 150 mg PO BID 05/22/15 [History] hydrALAZINE [Apresoline] 50 mg PO TID 05/22/15 [History] rOPINIRole [Requip] 2 mg PO BEDTIME 05/22/15 [History] Aspirin [Adult Low Dose Aspirin EC] 81 mg PO BEDTIME 05/23/15 [History] Nitroglycerin [Nitro-Dur 0.3 MG/Hr] 1 patch TD DAILY 05/23/15 [History] Nitroglycerin [Nitrostat] 0.4 mg SL ASDIRECTED PRN 05/23/15 [History] Glucosamine [Glucosamine Sulfate] 1,000 mg PO BID 07/28/15 [History] Multivitamin [Daily Multiple Vitamin] 1 tab PO DAILY 07/28/15 [History] Metoprolol Tartrate 100 mg PO BID 11/03/17 [History] Calcium Acetate [PhosLo] 2 tab PO TID 03/15/19 [History] Clopidogrel [Plavix] 75 mg PO DAILY 03/15/19 [History] Fenofibrate 54 mg PO DAILY 03/15/19 [History] Isosorbide Mononitrate [Imdur] 60 mg PO BID 03/15/19 [History] NIFEdipine [Procardia Xl] 90 mg PO BID 03/15/19 [History] Pantoprazole Sodium [Protonix] 40 mg PO DAILY 03/15/19 [History] Sevelamer Carbonate [Renvela] 3 tab PO TID 03/15/19 [History] Albuterol Sulfate [Proair Respiclick] 2 puff IH Q6HR PRN 06/20/19 [History] Gabapentin [Neurontin] 100 mg PO BEDTIME 06/20/19 [History] Glycopyrrolate/Formoterol Fum [Bevespi Aerosphere Inhaler] 2 inh INH BID [History] Past Medical History Other HEENT History: Bilateral hearing aids, wears glasses, upper and lower denture Cardiovascular History: Reports: High Cholesterol, Hypertension, [place] Respiratory History: Reports: Intubation, Previous, SOB Other Respiratory History: SOB with excertion Gastrointestinal History: Reports: GERD, Hepatitis Other Gastrointestinal History: Hepatitis C with treatment Genitourinary History: Reports: Dialysis, Renal Disease Musculoskeletal History: Reports: Fracture, Other (See Below) Other Musculoskeletal History: hx fx collarbone Neurological History: Reports: Other (See Below) Other Neuro History: Restless Legs Psychiatric History: Reports: None Endocrine/Metabolic History: Reports: Diabetes, Type II, Obesity/BMI 30+ Insulin Pump Model and Ssis Architect: None Hematologic History: Reports: Anticoagulation Therapy, Blood Transfusion(s) Immunologic History: Reports: None Oncologic (Cancer) History: Reports: None Dermatologic History: Reports: None - Infectious Disease History Infectious Disease History: Reports: None - Past Surgical History Head Surgeries/Procedures: Reports: None HEENT Surgical History: Reports: Adenoidectomy, Oral Surgery, Tonsillectomy Cardiovascular Surgical History: Reports: Coronary Artery Stent Other Cardiovascular Surgeries/Procedures: Stenting 15 yrs ago [place] [address], [place] stenting War 09/2014 GI Surgical History: Reports: Colonoscopy Other GI Surgeries/Procedures: Liver Biopsy 10 yrs ago Male Surgical History: Reports: Vasectomy Social & Family History - Family History Family Medical History: Noncontributory - Tobacco Use Smoking Status *Q: Never Smoker - Caffeine Use Caffeine Use: Reports: Coffee - Recreational Drug Use Recreational Drug Use: No ED ROS GENERAL - Review of Systems Review Of Systems: ROS reveals no pertinent complaints other than HPI. ED EXAM, GENERAL - Physical Exam Exam: See Below (See dictation) Course - Vital Signs Last Recorded V/S: Last Vital Signs Temp 36.2 C 06/20/19 00:35 Pulse 96 06/20/19 01:17 Resp 16 06/20/19 01:17 BP 194/97 H 06/20/19 01:17 Pulse Ox 96 06/20/19 01:17 - Orders/Labs/Meds Orders: Active Orders 24 hr Category Date Time Status Cardiac Monitoring [RC] . DIRECTED Care 06/20/19 00:46 Active EKG Documentation Completion [RC] STAT Care 06/20/19 00:46 Active Oxygen Therapy, ED [RC] ASDIRECTED Care 06/20/19 00:46 Active Pulse Oximetry [RC] ASDIRECTED Care 06/20/19 00:46 Active B-TYPE NATRIURETIC PEPTIDE,BNP [CHEM] Stat Lab 06/20/19 00:45 Received TYPE AND SCREEN [BBK] Stat Lab 06/20/19 00:56 Ordered Nitroglycerin [Nitro-Bid 2%] Med 06/20/19 01:31 Once 0.5 gm TOP ONETIME ONE Nitroglycerin [Nitrostat] Med 06/20/19 00:46 Active 0.4 mg SL Q5M PRN Pantoprazole [ProTONIX IV] 80 mg Med 06/20/19 01:30 Active Sodium Chloride 0.9% [Normal Saline] 100 ml IV .Continuous Sodium Chloride 0.9% [Saline Flush] Med 06/20/19 00:46 Active 10 ml FLUSH ASDIRECTED PRN Sodium Chloride 0.9% [Saline Flush] Med 06/20/19 00:46 Active 2.5 ml FLUSH ASDIRECTED PRN Saline Lock Insert [OM.PC] Stat Oth 06/20/19 00:46 Ordered Medication Orders Pantoprazole Sodium 80 mg/ (Sodium Chloride) 100 mls @ 10 mls/hr IV .Continuous CÉSAR Nitroglycerin (Nitrostat) 0.4 mg SL Q5M PRN PRN Reason: Chest Pain Last Admin: 06/20/19 01:01 Dose: 0.4 mg Nitroglycerin (Nitro-Bid 2%) 0.5 gm TOP ONETIME ONE Stop: 06/20/19 01:32 Sodium Chloride (Saline Flush) 10 ml FLUSH ASDIRECTED PRN PRN Reason: Keep Vein Open Sodium Chloride (Saline Flush) 2.5 ml FLUSH ASDIRECTED PRN PRN Reason: Keep Vein Open Labs: Laboratory Tests 06/20/19 06/20/19 06/20/19 Range/Units 00:45 00:45 00:45 WBC 3.77 L (4.0-11.0) K/uL RBC 2.45 L (4.50-5.90) M/uL Hgb 7.9 L (13.0-17.0) g/dL Hct 24.8 L (38.0-50.0) % MCV 101.2 H (80.0-98.0) fL MCH 32.2 H (27.0-32.0) pg MCHC 31.9 (31.0-37.0) g/dL RDW Std Deviation 60.9 (28.0-62.0) fl RDW Coeff of Candido 17 H (11.0-15.0) % Plt Count 87 L (150-400) K/uL MPV 10.30 (7.40-12.00) fL Neut % (Auto) 77.2 (48.0-80.0) % Lymph % (Auto) 11.1 L (16.0-40.0) % [place] % (Auto) 9.3 (0.0-15.0) % Eos % (Auto) 1.9 (0.0-7.0) % Baso % (Auto) 0.5 (0.0-1.5) % Neut # (Auto) 2.9 (1.4-5.7) K/uL Lymph # (Auto) 0.4 L (0.6-2.4) K/uL [place] # (Auto) 0.4 (0.0-0.8) K/uL Eos # (Auto) 0.1 (0.0-0.7) K/uL Baso # (Auto) 0.0 (0.0-0.1) K/uL INR 1.03 Sodium 137 (136-148) mmol/L Potassium 5.3 H (3.5-5.1) mmol/L Chloride 99 (98-107) mmol/L Carbon Dioxide 25.9 (21.0-32.0) mmol/L BUN 68 H (7.0-18.0) mg/dL Creatinine 9.8 H (0.8-1.3) mg/dL Est Cr Clr Drug Dosing TNP Estimated GFR (MDRD) 5.4 ml/min Glucose 146 H (74-106) mg/dL Calcium 10.9 H (8.5-10.1) mg/dL Total Bilirubin 0.5 (0.2-1.0) mg/dL AST 16 (15-37) IU/L ALT 14 (14-63) IU/L Alkaline Phosphatase 83 (46-116) U/L Troponin I < 0.050 (0.000-0.056) ng/mL Total Protein 7.0 (6.4-8.2) g/dL Albumin 3.6 (3.4-5.0) g/dL Globulin 3.4 (2.6-4.0) g/dL Albumin/Globulin Ratio 1.1 (0.9-1.6) Meds: Medications Generic Name Dose Route Start Last Admin Trade Name Freq PRN Reason Stop Dose Admin Pantoprazole Sodium 80 mg/ 100 mls @ 10 mls/hr 06/20/19 01:30 Sodium Chloride IV .Continuous CÉSAR Nitroglycerin 0.4 mg 06/20/19 00:46 06/20/19 01:01 Nitrostat SL 0.4 mg Q5M PRN Administration Chest Pain Nitroglycerin 0.5 gm 06/20/19 01:31 Nitro-Bid 2% TOP 06/20/19 01:32 ONETIME ONE Sodium Chloride 10 ml 06/20/19 00:46 Saline Flush FLUSH ASDIRECTED PRN Keep Vein Open Sodium Chloride 2.5 ml 06/20/19 00:46 Saline Flush FLUSH ASDIRECTED PRN Keep Vein Open Discontinued Medications Generic Name Dose Route Start Last Admin Trade Name Freq PRN Reason Stop Dose Admin Aspirin 324 mg 06/20/19 00:46 Aspirin PO 06/20/19 00:47 ONETIME ONE Pantoprazole Sodium 80 mg/ 10 mls @ 300 mls/hr 06/20/19 00:55 06/20/19 00:57 Sodium Chloride IV 06/20/19 00:56 Not Given NOW ONE Ondansetron HCl 4 mg 06/20/19 00:46 06/20/19 00:52 Zofran IVPUSH 06/20/19 00:47 4 mg ONETIME ONE Administration Ondansetron HCl Confirm 06/20/19 00:53 06/20/19 00:58 Zofran Administered 06/20/19 00:54 Not Given Dose 4 mg .ROUTE .STK-MED ONE Ondansetron HCl 4 mg 06/20/19 00:56 06/20/19 00:58 Zofran IVPUSH 06/20/19 00:57 4 mg ONETIME ONE Administration Pantoprazole Sodium Confirm 06/20/19 00:53 06/20/19 00:57 Protonix Iv Administered 06/20/19 00:54 Not Given Dose 80 mg .ROUTE .STK-MED ONE Pantoprazole Sodium 80 mg 06/20/19 00:55 06/20/19 00:57 Protonix Iv IVPUSH 06/20/19 00:56 80 mg .BOLUS ONE Administration Departure - Departure Time of Disposition: 01:33 Disposition: DC/Tfer to Acute Hospital 02 Condition: Fair Clinical Impression: Anginal chest pain at rest Hematemesis Qualifiers: Nausea presence: without nausea Qualified Code(s): K92.0 - Hematemesis - Discharge Information Referrals: Yosef العراقي MD [Primary Care Provider] - Forms: ED Department Discharge - My Orders Last 24 Hours: My Active Orders 06/20/19 00:45 B-TYPE NATRIURETIC PEPTIDE,BNP [CHEM] Stat 06/20/19 00:46 Cardiac Monitoring [RC] . DIRECTED EKG Documentation Completion [RC] STAT Oxygen Therapy, ED [RC] ASDIRECTED Pulse Oximetry [RC] ASDIRECTED Nitroglycerin [Nitrostat] 0.4 mg SL Q5M PRN Sodium Chloride 0.9% [Saline Flush] 10 ml FLUSH ASDIRECTED PRN Sodium Chloride 0.9% [Saline Flush] 2.5 ml FLUSH ASDIRECTED PRN Saline Lock Insert [OM.PC] Stat 06/20/19 00:56 TYPE AND SCREEN [BBK] Stat 06/20/19 01:30 Pantoprazole [ProTONIX IV] 80 mg Sodium Chloride 0.9% [Normal Saline] 100 ml IV .Continuous 06/20/19 01:31 Nitroglycerin [Nitro-Bid 2%] 0.5 gm TOP ONETIME ONE - Assessment/Plan Last 24 Hours: My Active Orders 06/20/19 00:45 B-TYPE NATRIURETIC PEPTIDE,BNP [CHEM] Stat 06/20/19 00:46 Cardiac Monitoring [RC] . DIRECTED EKG Documentation Completion [RC] STAT Oxygen Therapy, ED [RC] ASDIRECTED Pulse Oximetry [RC] ASDIRECTED Nitroglycerin [Nitrostat] 0.4 mg SL Q5M PRN Sodium Chloride 0.9% [Saline Flush] 10 ml FLUSH ASDIRECTED PRN Sodium Chloride 0.9% [Saline Flush] 2.5 ml FLUSH ASDIRECTED PRN Saline Lock Insert [OM.PC] Stat 06/20/19 00:56 TYPE AND SCREEN [BBK] Stat 06/20/19 01:30 Pantoprazole [ProTONIX IV] 80 mg Sodium Chloride 0.9% [Normal Saline] 100 ml IV .Continuous 06/20/19 01:31 Nitroglycerin [Nitro-Bid 2%] 0.5 gm TOP ONETIME ONE
--- NOTE | 2019-06-20 01:10 | CR ---
INDICATION: Pt w/chest pain. TECHNIQUE: Chest 1 view. COMPARISON: 05/14/19. FINDINGS: Cardiovascular and mediastinum: Heart size and vasculature are normal in caliber and appearance. Mediastinum is within normal limits. Lungs and pleural space: Lungs are clear. No sign of infiltrate or mass. No sign of pleural effusion. No pneumothorax. Bones and soft tissues: No significant findings. IMPRESSION: Unremarkable chest. Dictated by: Kris Joiner MD @ 06/20/2019 01:09:18 (Electronically Signed)
[2019-06-20 01:19] LABS: BLOOD UREA NITROGEN,BUN 68 mg/dL (7.0-18.0); CARBON DIOXIDE,CO2 25.9 mmol/L (21.0-32.0); CHLORIDE,CL 99 mmol/L (98-107); GLUCOSE RANDOM 146 mg/dL (74-106); POTASSIUM,K 5.3 mmol/L (3.5-5.1); SODIUM,NA 137 mmol/L (136-148)
[2019-06-20] MEDS ORDERED: Pantoprazole 80 MG in Sodium Chloride 0.9% 100 ML IV SCH ×2 (01:30→02:00)
[2019-06-20] MEDS ORDERED: Nitroglycerin 2% Oint 1 GM UD Packet TOP ONE (01:31)
[2019-06-20 04:35] VITALS: BP 174/82; PULSE 85
== END 2019-06-20 04:16 ==
LOC: MW.ED 00:30
DX: I25.119 Atherosclerotic heart disease of native coronary artery with unspecified angina pectoris (principal); K92.0 Hematemesis; K92.2 Gastrointestinal hemorrhage, unspecified; I25.2 Old myocardial infarction; I12.0 Hypertensive chronic kidney disease with stage 5 chronic kidney disease or end stage renal disease; E11.22 Type 2 diabetes mellitus with diabetic chronic kidney disease; N18.6 End stage renal disease; Z99.2 Dependence on renal dialysis; E78.00 Pure hypercholesterolemia, unspecified; K21.9 Gastro-esophageal reflux disease without esophagitis; Z95.5 Presence of coronary angioplasty implant and graft; Z91.048 Other nonmedicinal substance allergy status; Z88.8 Allergy status to other drugs, medicaments and biological substances; Z79.82 Long term (current) use of aspirin; Z79.899 Other long term (current) drug therapy
CPT/HCPCS: 36415; 71045; 80053; 83880; 84484; 85014; 85018; 85025; 85610; 86850; 86900; 86901; 93005; 96374; 96375; 99285; A9270; C9113; J2405; J7030

== ENCOUNTER 2019-08-08 23:28 | Emergency (ER) | payer OTHER ==
[2019-08-09] MEDS ORDERED: Sodium Chloride 0.9% 10 ML Syringe FLUSH PRN (00:02)
[2019-08-09] MEDS ORDERED: Sodium Chloride 0.9% 2.5 ML Syringe FLUSH PRN (00:02)
[2019-08-09] MEDS ORDERED: Pantoprazole 40 MG Vial IVPUSH ONE (00:03)
[2019-08-09] MEDS ORDERED: Nitroglycerin 0.4 MG Tab.SL ONE (00:04)
[2019-08-09] MEDS: Nitroglycerin 0.4 MG Tab.SL SL PRN ×3 (00:06→01:04)
--- NOTE | 2019-08-09 00:08 | EDM.PDOC ---
ED HPI GENERAL MEDICAL PROBLEM - General Chief Complaint: Chest Pain Stated Complaint: PT IS IN PAIN Time Seen by Provider: 08/08/19 23:52 - History of Present Illness INITIAL COMMENTS - FREE TEXT/NARRATIVE: HISTORY AND PHYSICAL: History of present illness: The patient is a 64-year-old male with end-stage renal disease who is on dialysis hypertension and who is well known to this provider for his ER visits and has a history of stable angina for which she uses nitroglycerin sublingual as needed and presents with complaints of 3 episodes of red or dark stools that occurred this evening. According to the patient's history I did take care of this patient on June 20 and he was having melena and vomiting coffee grounds and he was transferred for a hemoglobin of 7.8. According to at bedside he did have an EGD and colonoscopy and they did not find any active bleeding or any reasons for his symptoms other than a polyp. The patient has been stable without issue since that time and he is not taking any antacids chronically. The patient gets his dialysis on Thursday and Saturdays and is due at 6:00 tomorrow morning and dialyzes through a right forearm fistula. According to the patient he ate dinner at a restaurant and had to go to the bathroom and when he went to the toilet he had a large episode of bright red blood per rectum mixed with stool. There was some slight discomfort with the bowel movement and afterwards he had no abdominal pain nausea vomiting chest pain or shortness of breath. At home he had a second bowel movement which was more dark in color but a small amount and a third bowel movement that was bright red but only small in volume. He currently has no abdominal pain no rectal pain and no shortness of breath. 10 minutes before coming here he had an episode of his typical anginal chest pain and he was given a nitroglycerin sublingual which she was told to take and the pain was alleviated. Currently on my initial evaluation the patient was not having any chest pain and then after I went to see a second patient said he was starting to have some chest discomfort. The patient is not lightheaded or dizzy and says he has been eating and drinking normally. The patient doesn't make a small amount of urine daily with his dialysis. Review of systems: As per history of present illness and below otherwise all systems reviewed and negative. Past medical history: As per history of present illness and as reviewed below otherwise noncontributory. Surgical history: As per history of present illness and as reviewed below otherwise noncontributory. Social history: No reported history of drug or alcohol abuse. Family history: As per history of present illness and as reviewed below otherwise noncontributory. Physical exam: General: Well-developed well-nourished mildly overweight man who is nontoxic and vital signs are noted by me HEENT: Atraumatic, normocephalic, pupils reactive, negative for conjunctival pallor or scleral icterus, mucous membranes moist, throat clear, neck supple, nontender, trachea midline. Lungs: Clear to auscultation, breath sounds equal bilaterally, chest nontender. Heart: S1S2, regular ate and rhythm no overt murmurs Abdomen: Soft, nondistended, nontender. There is some tympany on percussion and diminished bowel sounds but no rebound or guarding Negative for masses or hepatosplenomegaly. Negative for costovertebral tenderness. Pelvis: Stable nontender. Genitourinary: Deferred. Rectal: Normal tone and no overt masses or lesions and there is melanotic stool in the vault which is Hemoccult positive Extremities: Atraumatic, negative for cords or calf pain. Neurovascular unremarkable. The patient has trace pedal edema bilaterally which is nontender Neuro: Awake, alert, oriented. Cranial nerves II through XII unremarkable. Cerebellum unremarkable. Motor and sensory unremarkable throughout. Exam nonfocal. Diagnostics: CBC CMP INR troponin chest x-ray type and screen Therapeutics: IV O2 monitor Protonix sublingual nitroglycerin x 1, zofran I discussed with patient and at bedside all testing results and possible options for care plan. I recommended transferred to [facility] and they were thinking about that care plan when I left for a few minutes and then returned and the patient was having emesis of food mixed with brown fluid consistent with coffee grounds. There is no blood or maroon-colored vomitus. At this point I will recommend transfer to [facility] and will arrange transportation and patient and are agreeable. I will give a dose of Zofran [id number]: Case was discussed with Dr. Mcdonald at [facility] who accepts the patient for transfer. He is aware of tonight's events and we will forward all information including reports of labs and chest x-ray to them. I will continue to monitor the patient here. Impression: Melanotic stools, coffee ground emesis--history of same, end-stage renal disease on dialysis Definitive disposition and diagnosis as appropriate pending reevaluation and review of above. chest Pain Score (Numeric/FACES): 5 - Related Data Allergies Allergy/AdvReac Type Severity Reaction Status Date / Time trazodone Allergy Itching Verified 08/08/19 23:35 Bandaids Allergy Itching Uncoded 08/08/19 23:35 Home Meds: Home Meds Ascorbic Acid [C-1000] 1,000 mg PO BID 05/22/15 [History] Bumetanide [Bumex] 1 mg PO DAILY 05/22/15 [History] Melatonin 3 mg PO ASDIRECTED PRN 05/22/15 [History] Ranitidine [Zantac] 150 mg PO ASDIRECTED PRN 05/22/15 [History] hydrALAZINE [Apresoline] 100 mg PO TID 05/22/15 [History] rOPINIRole [Requip] 2 mg PO BID 05/22/15 [History] Aspirin [Adult Low Dose Aspirin EC] 81 mg PO BEDTIME 05/23/15 [History] Nitroglycerin [Nitro-Dur 0.3 MG/Hr] 1 patch TD ASDIRECTED PRN 05/23/15 [History] Nitroglycerin [Nitrostat] 0.4 mg SL ASDIRECTED PRN 05/23/15 [History] Glucosamine [Glucosamine Sulfate] 1,500 mg PO BID 07/28/15 [History] Multivitamin [Daily Multiple Vitamin] 1 tab PO DAILY 07/28/15 [History] Metoprolol Tartrate 100 mg PO BID 11/03/17 [History] Calcium Acetate [PhosLo] 3 tab PO TID 03/15/19 [History] Clopidogrel [Plavix] 75 mg PO DAILY 03/15/19 [History] Fenofibrate 54 mg PO DAILY 03/15/19 [History] Isosorbide Mononitrate [Imdur] 1.5 tab PO DAILY 03/15/19 [History] NIFEdipine [Procardia Xl] 90 mg PO BID 03/15/19 [History] Pantoprazole Sodium [Protonix] 40 mg PO DAILY 03/15/19 [History] Sevelamer Carbonate [Renvela] 3 tab PO TID 03/15/19 [History] Albuterol Sulfate [Proair Respiclick] 2 puff IH Q6HR PRN 06/20/19 [History] Gabapentin [Neurontin] 100 mg PO BEDTIME 06/20/19 [History] Budesonide/Formoterol Fumarate [Symbicort 80-4.5 MCG] 2 puff INH BID PRN [History] Pravastatin Sodium 10 mg PO DAILY 08/09/19 [History] Past Medical History Other HEENT History: Bilateral hearing aids, wears glasses, upper and lower denture Cardiovascular History: Reports: High Cholesterol, Hypertension, OR Respiratory History: Reports: Intubation, Previous, SOB Other Respiratory History: SOB with excertion Gastrointestinal History: Reports: GERD, Hepatitis Other Gastrointestinal History: Hepatitis C with treatment Genitourinary History: Reports: Dialysis, Renal Disease, Other (See Below) Other Genitourinary History: hemodialysis 3x a week. (,,sat) Musculoskeletal History: Reports: Fracture, Other (See Below) Other Musculoskeletal History: hx fx collarbone Neurological History: Reports: Other (See Below) Other Neuro History: Restless Legs Psychiatric History: Reports: None Endocrine/Metabolic History: Reports: Diabetes, Type II Insulin Pump Model and Fusing Machine Feeder: None Hematologic History: Reports: Anticoagulation Therapy, Blood Transfusion(s) Immunologic History: Reports: None Oncologic (Cancer) History: Reports: None Dermatologic History: Reports: None - Infectious Disease History Infectious Disease History: Reports: None - Past Surgical History Head Surgeries/Procedures: Reports: None HEENT Surgical History: Reports: Adenoidectomy, Oral Surgery, Tonsillectomy Cardiovascular Surgical History: Reports: Coronary Artery Stent Other Cardiovascular Surgeries/Procedures: Stenting 15 yrs ago [place] [address], [place] stenting [place] 09/2014 GI Surgical History: Reports: Colonoscopy Other GI Surgeries/Procedures: Liver Biopsy 10 yrs ago Male Surgical History: Reports: Vasectomy Social & Family History - Family History Family Medical History: Noncontributory - Tobacco Use Smoking Status *Q: Current Every Day Smoker Years of Tobacco use: 48 Packs/Tins Daily: 1 - Caffeine Use Caffeine Use: Reports: Coffee - Recreational Drug Use Recreational Drug Use: No ED ROS GENERAL - Review of Systems Review Of Systems: ROS reveals no pertinent complaints other than HPI. ED EXAM, GENERAL - Physical Exam Exam: See Below (See dictation) Course - Vital Signs Last Recorded V/S: Last Vital Signs Temp 36.1 C 08/08/19 23:28 Pulse 95 08/08/19 23:28 Resp 18 08/08/19 23:28 BP 174/84 H 08/09/19 00:06 Pulse Ox 96 08/08/19 23:28 - Orders/Labs/Meds Orders: Active Orders 24 hr Category Date Time Status Cardiac Monitoring [RC] . DIRECTED Care 08/09/19 00:02 Active EKG Documentation Completion [RC] STAT Care 08/09/19 00:02 Active Oxygen Therapy, ED [RC] ASDIRECTED Care 08/09/19 00:02 Active Pulse Oximetry [RC] ASDIRECTED Care 08/09/19 00:02 Active TYPE AND SCREEN [BBK] Stat Lab 08/09/19 00:15 Received Nitroglycerin [Nitrostat] Med 08/09/19 00:03 Active 0.4 mg SL Q5M PRN Sodium Chloride 0.9% [Saline Flush] Med 08/09/19 00:02 Active 10 ml FLUSH ASDIRECTED PRN Sodium Chloride 0.9% [Saline Flush] Med 08/09/19 00:02 Active 2.5 ml FLUSH ASDIRECTED PRN Saline Lock Insert [OM.PC] Stat Oth 08/09/19 00:02 Ordered Medication Orders Nitroglycerin (Nitrostat) 0.4 mg SL Q5M PRN PRN Reason: Chest Pain Last Admin: 08/09/19 00:06 Dose: 0.4 mg Sodium Chloride (Saline Flush) 10 ml FLUSH ASDIRECTED PRN PRN Reason: Keep Vein Open Sodium Chloride (Saline Flush) 2.5 ml FLUSH ASDIRECTED PRN PRN Reason: Keep Vein Open Labs: Laboratory Tests 08/08/19 08/08/19 08/08/19 Range/Units 23:45 23:45 23:45 WBC 4.76 (4.0-11.0) K/uL RBC 2.59 L (4.50-5.90) M/uL Hgb 8.3 L (13.0-17.0) g/dL Hct 25.5 L (38.0-50.0) % MCV 98.5 H (80.0-98.0) fL MCH 32.0 (27.0-32.0) pg MCHC 32.5 (31.0-37.0) g/dL RDW Std Deviation 59.3 (28.0-62.0) fl RDW Coeff of Candido 17 H (11.0-15.0) % Plt Count 87 L (150-400) K/uL MPV 9.80 (7.40-12.00) fL Neut % (Auto) 72.7 (48.0-80.0) % Lymph % (Auto) 17.0 (16.0-40.0) % Tyrrell % (Auto) 7.6 (0.0-15.0) % Eos % (Auto) 2.5 (0.0-7.0) % Baso % (Auto) 0.2 (0.0-1.5) % Neut # (Auto) 3.5 (1.4-5.7) K/uL Lymph # (Auto) 0.8 (0.6-2.4) K/uL Tyrrell # (Auto) 0.4 (0.0-0.8) K/uL Eos # (Auto) 0.1 (0.0-0.7) K/uL Baso # (Auto) 0.0 (0.0-0.1) K/uL Nucleated RBC % 0.0 /100WBC Nucleated RBCs # 0 K/uL INR 1.03 Sodium 139 (136-148) mmol/L Potassium 5.5 H (3.5-5.1) mmol/L Chloride 99 (98-107) mmol/L Carbon Dioxide 25.5 (21.0-32.0) mmol/L BUN 117 H (7.0-18.0) mg/dL Creatinine 11.3 H (0.8-1.3) mg/dL Est Cr Clr Drug Dosing TNP Estimated GFR (MDRD) 4.6 ml/min Glucose 146 H (74-106) mg/dL Calcium 10.0 (8.5-10.1) mg/dL Total Bilirubin 0.4 (0.2-1.0) mg/dL AST 13 L (15-37) IU/L ALT 21 (14-63) IU/L Alkaline Phosphatase 85 (46-116) U/L Troponin I < 0.050 (0.000-0.056) ng/mL Total Protein 7.0 (6.4-8.2) g/dL Albumin 3.5 (3.4-5.0) g/dL Globulin 3.5 (2.6-4.0) g/dL Albumin/Globulin Ratio 1.0 (0.9-1.6) Meds: Medications Generic Name Dose Route Start Last Admin Trade Name Sandra PRN Reason Stop Dose Admin Nitroglycerin 0.4 mg 08/09/19 00:03 08/09/19 00:06 Nitrostat SL 0.4 mg Q5M PRN Administration Chest Pain Sodium Chloride 10 ml 08/09/19 00:02 Saline Flush FLUSH ASDIRECTED PRN Keep Vein Open Sodium Chloride 2.5 ml 08/09/19 00:02 Saline Flush FLUSH ASDIRECTED PRN Keep Vein Open Discontinued Medications Generic Name Dose Route Start Last Admin Trade Name Sandra PRN Reason Stop Dose Admin Sodium Chloride Confirm 08/09/19 00:09 08/09/19 00:14 Normal Saline Administered 08/09/19 00:10 20 mls/hr Dose Administration 20 mls @ as directed .ROUTE .STK-MED ONE Nitroglycerin Confirm 08/09/19 00:04 08/09/19 00:38 Nitrostat Administered 08/09/19 00:05 Not Given Dose 0.4 mg .ROUTE .STK-MED ONE Ondansetron HCl 4 mg 08/09/19 00:53 Zofran IVPUSH 08/09/19 00:54 ONETIME ONE Pantoprazole Sodium 80 mg 08/09/19 00:03 08/09/19 00:14 Protonix Iv IVPUSH 08/09/19 00:04 80 mg .BOLUS ONE Administration Departure - Departure Time of Disposition: 01:01 Disposition: DC/Tfer to Acute Hospital 02 Condition: Fair Clinical Impression: Chronic renal failure, stage 5 GI bleed Qualifiers: GI bleed type/associated pathology: unspecified gastrointestinal hemorrhage type Qualified Code(s): K92.2 - Gastrointestinal hemorrhage, unspecified - Discharge Information Referrals: Yosef العراقي MD [Primary Care Provider] - Forms: ED Department Discharge - My Orders Last 24 Hours: My Active Orders 08/09/19 00:02 Cardiac Monitoring [RC] . DIRECTED EKG Documentation Completion [RC] STAT Oxygen Therapy, ED [RC] ASDIRECTED Pulse Oximetry [RC] ASDIRECTED Sodium Chloride 0.9% [Saline Flush] 10 ml FLUSH ASDIRECTED PRN Sodium Chloride 0.9% [Saline Flush] 2.5 ml FLUSH ASDIRECTED PRN Saline Lock Insert [OM.PC] Stat 08/09/19 00:03 Nitroglycerin [Nitrostat] 0.4 mg SL Q5M PRN 08/09/19 00:15 TYPE AND SCREEN [BBK] Stat - Assessment/Plan Last 24 Hours: My Active Orders 08/09/19 00:02 Cardiac Monitoring [RC] . DIRECTED EKG Documentation Completion [RC] STAT Oxygen Therapy, ED [RC] ASDIRECTED Pulse Oximetry [RC] ASDIRECTED Sodium Chloride 0.9% [Saline Flush] 10 ml FLUSH ASDIRECTED PRN Sodium Chloride 0.9% [Saline Flush] 2.5 ml FLUSH ASDIRECTED PRN Saline Lock Insert [OM.PC] Stat 08/09/19 00:03 Nitroglycerin [Nitrostat] 0.4 mg SL Q5M PRN 08/09/19 00:15 TYPE AND SCREEN [BBK] Stat
[2019-08-09] MEDS ORDERED: Sodium Chloride 0.9% 20 ML ONE (00:09)
--- NOTE | 2019-08-09 00:18 | CR ---
INDICATION: Chest pain TECHNIQUE: Chest radiograph 1 view COMPARISON: 06/20/2019 FINDINGS: Mediastinum: The mediastinum is normal in appearance. The heart silhouette is normal in size and morphology. Lung: Both lungs are unremarkable in appearance. No sign of pleural effusion seen. No pneumothorax is identified. Bone and Soft tissue: Old fracture deformity of the right clavicle is noted without change. IMPRESSION: 1. No acute cardiopulmonary disease is seen. Dictated by Thien Walker MD @ 08/09/2019 12:17:10 AM Dictated by: Thien Walker MD @ 08/09/2019 00:17:13 (Electronically Signed)
[2019-08-09 00:22] LABS: BLOOD UREA NITROGEN,BUN 117 mg/dL (7.0-18.0); CARBON DIOXIDE,CO2 25.5 mmol/L (21.0-32.0); CHLORIDE,CL 99 mmol/L (98-107); GLUCOSE RANDOM 146 mg/dL (74-106); POTASSIUM,K 5.5 mmol/L (3.5-5.1); SODIUM,NA 139 mmol/L (136-148)
[2019-08-09] MEDS ORDERED: Ondansetron 4 MG/2 ML SDV IVPUSH ONE (00:53)
[2019-08-09] MEDS ORDERED: Ondansetron 4 MG/2 ML SDV ONE (00:54)
[2019-08-09 00:59] VITALS: PULSE 111
[2019-08-09 01:07] VITALS: BP 190/89
== END 2019-08-09 01:55 ==
LOC: MW.ED 23:28
DX: I12.0 Hypertensive chronic kidney disease with stage 5 chronic kidney disease or end stage renal disease (principal); E11.22 Type 2 diabetes mellitus with diabetic chronic kidney disease; N18.6 End stage renal disease; K92.1 Melena; K92.0 Hematemesis; E78.00 Pure hypercholesterolemia, unspecified; I25.2 Old myocardial infarction; K21.9 Gastro-esophageal reflux disease without esophagitis; F17.210 Nicotine dependence, cigarettes, uncomplicated; Z95.5 Presence of coronary angioplasty implant and graft; Z99.2 Dependence on renal dialysis; Z88.8 Allergy status to other drugs, medicaments and biological substances; Z91.048 Other nonmedicinal substance allergy status; Z79.82 Long term (current) use of aspirin; Z79.02 Long term (current) use of antithrombotics/antiplatelets; Z79.899 Other long term (current) drug therapy
CPT/HCPCS: 36415; 71045; 80053; 84484; 85025; 85610; 86850; 86900; 86901; 93005; 96374; 96375; 99285; A9270; C9113; J2405

== ENCOUNTER 2019-08-17 20:35 | Emergency (ER) | payer MEDICARE, OTHER ==
[2019-08-17] MEDS ORDERED: Aspirin 81 MG Tab.Chew PO ONE (20:39)
[2019-08-17] MEDS ORDERED: Sodium Chloride 0.9% 1,000 ML IV ONE (20:39)
[2019-08-17] MEDS ORDERED: Nitroglycerin 0.4 MG Tab.SL SL ONE (20:39)
[2019-08-17] MEDS ORDERED: Morphine 2 MG/ML Syringe IVPUSH ONE (20:40)
[2019-08-17] MEDS ORDERED: Ondansetron 4 MG/2 ML SDV IVPUSH ONE (20:40)
--- NOTE | 2019-08-17 21:03 | EDM.PDOC ---
ED HPI GENERAL MEDICAL PROBLEM - General Chief Complaint: Chest Pain Stated Complaint: HEART ISSUES Time Seen by Provider: 08/17/19 20:39 Source of Information: Reports: Patient History Limitations: Reports: No Limitations - History of Present Illness INITIAL COMMENTS - FREE TEXT/NARRATIVE: HISTORY AND PHYSICAL: History of present illness: Patient is a 64-year-old male presents to the ED today with concern of chest pain 1- 2 hours before arrival to the ED. Patient has a history of stable angina , hypertension, end-stage renal disease on chronic dialysis. Patient states he took a dose of nitroglycerin at home without relief of symptoms and came to the ED. Patient states the chest pain is in the center of his chest and radiates to his jaw. Patient states he also feels slightly short of breath as well as having some nausea but has not vomited. Patient denies any other symptoms or concerns. Patient denies fever, chills, or cough. Denies headache, neck stiff ness, change in vision, syncope, or near syncope. Denies vomiting, abdominal pain, diarrhea, constipation, or dysuria. Has not noted any blood in urine or stool. Patient has been eating and drinking appropriately. Review of systems: As per history of present illness and below otherwise all systems reviewed and negative. Past medical history: As per history of present illness and as reviewed below otherwise noncontributory. Surgical history: As per history of present illness and as reviewed below otherwise noncontributory. Social history: See social history for further information Family history: As per history of present illness and as reviewed below otherwise noncontributory. Physical exam: General: Patient is alert, oriented, and in no acute distress. Patient laying comfortably on exam table. HEENT: Atraumatic, normocephalic, pupils equal and reactive bilaterally, negative for conjunctival pallor or scleral icterus, mucous membranes moist, TMs normal bilaterally, throat clear, neck supple, nontender, trachea midline. No drooling or trismus noted. No meningeal signs. No hot potato voice noted. Lungs: Clear to auscultation, breath sounds equal bilaterally, chest nontender. Heart: S1S2, regular rate and rhythm without overt murmur Abdomen: Soft, nondistended, nontender. Negative for masses or hepatosplenomegaly. Negative for costovertebral tenderness. Pelvis: Stable nontender. Genitourinary: Deferred. Rectal: Deferred. Skin: Intact, warm, dry. No lesions or rashes noted. Extremities: Atraumatic, negative for cords or calf pain. Neurovascular unremarkable. Neuro: Awake, alert, oriented. Cranial nerves II through XII unremarkable. Cerebellum unremarkable. Motor and sensory unremarkable throughout. Exam nonfocal. Notes: Dr. Barrera involved in patient care and also reviewed EKG EKG shows new ST changes and depression in lateral leads from prior EKG on file. Dr. Brush, [facility] in [place], consulted on patient and accepting of transfer. Flight arranged. Voices understanding and is agreeable to plan of care. Denies any further questions or concerns at this time. Diagnostics: CBC, CMP, UA, EKG, chest x-ray, troponin, PT/INR Therapeutics: Aspirin, Zofran, nitroglycerin, morphine, (Patient declines Nitropaste) Impression: Acute coronary syndrome Plan: 1. Transfer to Dr. Brush via flight at [facility] Definitive disposition and diagnosis as appropriate pending reevaluation and review of above. chest Pain Score (Numeric/FACES): 8 - Related Data Allergies Allergy/AdvReac Type Severity Reaction Status Date / Time trazodone Allergy Itching Verified 08/08/19 23:35 Bandaids Allergy Itching Uncoded 08/08/19 23:35 Home Meds: Home Meds Ascorbic Acid [C-1000] 1,000 mg PO BID 05/22/15 [History] Bumetanide [Bumex] 1 mg PO DAILY 05/22/15 [History] Melatonin 3 mg PO ASDIRECTED PRN 05/22/15 [History] Ranitidine [Zantac] 150 mg PO ASDIRECTED PRN 05/22/15 [History] hydrALAZINE [Apresoline] 100 mg PO TID 05/22/15 [History] rOPINIRole [Requip] 2 mg PO BID 05/22/15 [History] Aspirin [Adult Low Dose Aspirin EC] 81 mg PO BEDTIME 05/23/15 [History] Nitroglycerin [Nitro-Dur 0.3 MG/Hr] 1 patch TD ASDIRECTED PRN 05/23/15 [History] Nitroglycerin [Nitrostat] 0.4 mg SL ASDIRECTED PRN 05/23/15 [History] Glucosamine [Glucosamine Sulfate] 1,500 mg PO BID 07/28/15 [History] Multivitamin [Daily Multiple Vitamin] 1 tab PO DAILY 07/28/15 [History] Metoprolol Tartrate 100 mg PO BID 11/03/17 [History] Calcium Acetate [PhosLo] 3 tab PO TID 03/15/19 [History] Clopidogrel [Plavix] 75 mg PO DAILY 03/15/19 [History] Fenofibrate 54 mg PO DAILY 03/15/19 [History] Isosorbide Mononitrate [Imdur] 1.5 tab PO DAILY 03/15/19 [History] NIFEdipine [Procardia Xl] 90 mg PO BID 03/15/19 [History] Pantoprazole Sodium [Protonix] 40 mg PO DAILY 03/15/19 [History] Sevelamer Carbonate [Renvela] 3 tab PO TID 03/15/19 [History] Albuterol Sulfate [Proair Respiclick] 2 puff IH Q6HR PRN 06/20/19 [History] Gabapentin [Neurontin] 100 mg PO BEDTIME 06/20/19 [History] Budesonide/Formoterol Fumarate [Symbicort 80-4.5 MCG] 2 puff INH BID PRN [History] Cholecalciferol (Vitamin D3) [Vitamin D3] 1,000 unit PO DAILY 08/09/19 [History] Pravastatin Sodium 10 mg PO DAILY 08/09/19 [History] hydroCHLOROthiazide [Hydrochlorothiazide] 25 mg PO DAILY 08/09/19 [History] Past Medical History Other HEENT History: Bilateral hearing aids, wears glasses, upper and lower denture Cardiovascular History: Reports: High Cholesterol, Hypertension, [place] Respiratory History: Reports: Intubation, Previous, SOB Other Respiratory History: SOB with excertion Gastrointestinal History: Reports: GERD, Hepatitis Other Gastrointestinal History: Hepatitis C with treatment Genitourinary History: Reports: Dialysis, Renal Disease, Other (See Below) Other Genitourinary History: hemodialysis 3x a week. (,,thu) Musculoskeletal History: Reports: Fracture, Other (See Below) Other Musculoskeletal History: hx fx collarbone Neurological History: Reports: Other (See Below) Other Neuro History: Restless Legs Psychiatric History: Reports: None Endocrine/Metabolic History: Reports: Diabetes, Type II Insulin Pump Model and Varnisher Plasticoater: None Hematologic History: Reports: Anticoagulation Therapy, Blood Transfusion(s) Immunologic History: Reports: None Oncologic (Cancer) History: Reports: None Dermatologic History: Reports: None - Infectious Disease History Infectious Disease History: Reports: Mumps - Past Surgical History Head Surgeries/Procedures: Reports: None HEENT Surgical History: Reports: Adenoidectomy, Oral Surgery, Tonsillectomy Cardiovascular Surgical History: Reports: Coronary Artery Stent Other Cardiovascular Surgeries/Procedures: Stenting 15 yrs ago [place] x1, [place] stenting [place] 09/2014 GI Surgical History: Reports: Colonoscopy Other GI Surgeries/Procedures: Liver Biopsy 10 yrs ago Male Surgical History: Reports: Vasectomy Social & Family History - Family History Family Medical History: Noncontributory - Tobacco Use Smoking Status *Q: Former Smoker Used Tobacco, but Quit: Yes Month/Year Tobacco Last Used: 07/23 - Caffeine Use Caffeine Use: Reports: Coffee - Recreational Drug Use Recreational Drug Use: No ED ROS GENERAL - Review of Systems Review Of Systems: Comprehensive ROS is negative, except as noted in HPI. ED EXAM, GENERAL - Physical Exam Exam: See Below (See dictation) Course - Vital Signs Last Recorded V/S: Last Vital Signs Temp 97.1 F 08/17/19 20:38 Pulse 99 08/17/19 21:17 Resp 16 08/17/19 21:17 BP 105/64 08/17/19 21:17 Pulse Ox 99 08/17/19 21:17 - Orders/Labs/Meds Orders: Active Orders 24 hr Category Date Time Status EKG Documentation Completion [RC] STAT Care 08/17/19 20:39 Active UA RFX LETY AND CULT IF INDIC [URIN] Stat Lab 08/17/19 20:39 Ordered Nitroglycerin [Nitrostat] Med 08/17/19 21:04 Active 0.4 mg SL Q5M PRN Medication Orders Nitroglycerin (Nitrostat) 0.4 mg SL Q5M PRN PRN Reason: Chest Pain Last Admin: 08/17/19 21:15 Dose: 0.4 mg Admin: 08/17/19 21:05 Dose: 0.4 mg Labs: Laboratory Tests 08/17/19 08/17/19 08/17/19 Range/Units 20:42 20:42 20:42 WBC 4.29 (4.0-11.0) K/uL RBC 2.51 L (4.50-5.90) M/uL Hgb 8.0 L (13.0-17.0) g/dL Hct 25.1 L (38.0-50.0) % MCV 100.0 H (80.0-98.0) fL MCH 31.9 (27.0-32.0) pg MCHC 31.9 (31.0-37.0) g/dL RDW Std Deviation 63.5 H (28.0-62.0) fl RDW Coeff of Candido 18 H (11.0-15.0) % Plt Count 134 L (150-400) K/uL MPV 9.50 (7.40-12.00) fL Neut % (Auto) 81.9 H (48.0-80.0) % Lymph % (Auto) 11.2 L (16.0-40.0) % Arthur % (Auto) 5.8 (0.0-15.0) % Eos % (Auto) 0.9 (0.0-7.0) % Baso % (Auto) 0.2 (0.0-1.5) % Neut # (Auto) 3.5 (1.4-5.7) K/uL Lymph # (Auto) 0.5 L (0.6-2.4) K/uL Arthur # (Auto) 0.3 (0.0-0.8) K/uL Eos # (Auto) 0.0 (0.0-0.7) K/uL Baso # (Auto) 0.0 (0.0-0.1) K/uL Nucleated RBC % 0.0 /100WBC Nucleated RBCs # 0 K/uL INR 1.01 Sodium 138 (136-148) mmol/L Potassium 4.1 (3.5-5.1) mmol/L Chloride 98 (98-107) mmol/L Carbon Dioxide 24.7 (21.0-32.0) mmol/L BUN 46 H (7.0-18.0) mg/dL Creatinine 9.4 H (0.8-1.3) mg/dL Est Cr Clr Drug Dosing 6.72 mL/min Estimated GFR (MDRD) 5.6 ml/min Glucose 148 H (74-106) mg/dL Calcium 10.2 H (8.5-10.1) mg/dL Total Bilirubin 0.4 (0.2-1.0) mg/dL AST 17 (15-37) IU/L ALT 19 (14-63) IU/L Alkaline Phosphatase 78 (46-116) U/L Troponin I 0.340 H* (0.000-0.056) ng/mL Total Protein 7.8 (6.4-8.2) g/dL Albumin 4.0 (3.4-5.0) g/dL Globulin 3.8 (2.6-4.0) g/dL Albumin/Globulin Ratio 1.1 (0.9-1.6) Lipase 215 (73-393) U/L Meds: Medications Generic Name Dose Route Start Last Admin Trade Name Freq PRN Reason Stop Dose Admin Nitroglycerin 0.4 mg 08/17/19 21:04 08/17/19 21:15 Nitrostat SL 0.4 mg Q5M PRN Administration Chest Pain Discontinued Medications Generic Name Dose Route Start Last Admin Trade Name Freq PRN Reason Stop Dose Admin Aspirin 324 mg 08/17/19 20:39 08/17/19 20:55 Aspirin PO 08/17/19 20:40 324 mg ONETIME ONE Administration Sodium Chloride 1,000 mls @ 999 mls/hr 08/17/19 20:39 08/17/19 20:56 Normal Saline IV 08/17/19 21:39 999 mls/hr BOLUS ONE Administration Morphine Sulfate 2 mg 08/17/19 20:40 08/17/19 20:55 Morphine IVPUSH 08/17/19 20:41 2 mg ONETIME ONE Administration Nitroglycerin 0.4 mg 08/17/19 20:39 08/17/19 20:54 Nitrostat SL 08/17/19 20:40 0.4 mg ONETIME ONE Administration Ondansetron HCl 4 mg 08/17/19 20:40 08/17/19 20:54 Zofran IVPUSH 08/17/19 20:41 4 mg ONETIME ONE Administration Departure - Departure Time of Disposition: 21:49 Disposition: DC/Tfer to [facility] 02 Clinical Impression: Acute coronary syndrome - Discharge Information Referrals: PCP,None [Primary Care Provider] - Forms: ED Department Discharge - My Orders Last 24 Hours: My Active Orders 08/17/19 20:39 EKG Documentation Completion [RC] STAT UA RFX LETY AND CULT IF INDIC [URIN] Stat 08/17/19 21:04 Nitroglycerin [Nitrostat] 0.4 mg SL Q5M PRN - Assessment/Plan Last 24 Hours: My Active Orders 08/17/19 20:39 EKG Documentation Completion [RC] STAT UA RFX LETY AND CULT IF INDIC [URIN] Stat 08/17/19 21:04 Nitroglycerin [Nitrostat] 0.4 mg SL Q5M PRN
[2019-08-17] MEDS: Nitroglycerin 0.4 MG Tab.SL SL PRN ×2 (21:05→21:15)
--- NOTE | 2019-08-17 21:10 | CR ---
Indication: Chest pain. Technique: Single AP portable view of the chest was obtained. Comparison: August 09, 2019. Findings: The heart is normal in size. The lungs are clear. No infiltrate, pleural effusion, pneumothorax is identified. Impression: No acute cardiopulmonary process. Dictated by Adrienne Schulz MD @ Aug 17 2019 9:08PM Signed by Dr. Adrienne Schulz @ Aug 17 2019 9:09PM
[2019-08-17 21:11] LABS: CARBON DIOXIDE,CO2 24.7 mmol/L (21.0-32.0); POTASSIUM,K 4.1 mmol/L (3.5-5.1)
[2019-08-17 21:16] VITALS: BP 105/64
[2019-08-17 21:48] VITALS: PULSE 98
== END 2019-08-17 21:30 ==
LOC: MW.ED 20:35
DX: I24.9 Acute ischemic heart disease, unspecified (principal); I12.0 Hypertensive chronic kidney disease with stage 5 chronic kidney disease or end stage renal disease; E11.22 Type 2 diabetes mellitus with diabetic chronic kidney disease; N18.6 End stage renal disease; Z99.2 Dependence on renal dialysis; K21.9 Gastro-esophageal reflux disease without esophagitis; E78.00 Pure hypercholesterolemia, unspecified; I25.2 Old myocardial infarction; Z87.891 Personal history of nicotine dependence; Z79.01 Long term (current) use of anticoagulants; Z79.899 Other long term (current) drug therapy; Z79.82 Long term (current) use of aspirin; Z88.8 Allergy status to other drugs, medicaments and biological substances; Z91.09 Other allergy status, other than to drugs and biological substances
CPT/HCPCS: 36415; 71045; 80053; 83690; 84484; 85025; 85610; 93005; 96361; 96374; 96375; 99285; A9270; J2270; J2405; J7040; 99284; J7030

== ENCOUNTER 2019-09-06 16:03 | Emergency (ER) | payer OTHER, MEDICARE ==
--- NOTE | 2019-09-06 16:32 | EDM.PDOC ---
ED HPI GENERAL MEDICAL PROBLEM - General Chief Complaint: Cardiovascular Problem Stated Complaint: TROUBLE BREATHING Time Seen by Provider: 09/06/19 16:11 Source of Information: Reports: Patient, Family History Limitations: Reports: No Limitations - History of Present Illness INITIAL COMMENTS - FREE TEXT/NARRATIVE: HISTORY AND PHYSICAL: History of present illness: Patient is a 64-year-old male who presents to the ED today with feeling like he cannot take a deep breath and in short of breath.Patient has a history of stable angina, hypertension, end-stage renal disease on chronic dialysis. Patient states his last episode of dialysis was this morning. Patient states he did have a triple coronary artery bypass on 29 August and was just discharged on Thursday from [facility]. Patient states other than feeling like he can't take a deep breath in, he does feel a little bit more tired and run down today but denies any chest pain or any other symptoms. Patient denies any other symptoms or concerns. Patient denies fever, chills, chest pain, or cough. Denies headache, neck stiff ness, change in vision, syncope, or near syncope. Denies nausea, vomiting, abdominal pain, diarrhea, constipation, or dysuria. Has not noted any blood in urine or stool. Patient has been eating and drinking appropriately. Review of systems: As per history of present illness and below otherwise all systems reviewed and negative. Past medical history: As per history of present illness and as reviewed below otherwise noncontributory. Surgical history: As per history of present illness and as reviewed below otherwise noncontributory. Social history: See social history for further information Family history: As per history of present illness and as reviewed below otherwise noncontributory. Physical exam: General: Patient is alert, oriented, and in no acute distress. Patient laying comfortably on exam table and tired appearing but does answer questions appropriately and pale appearing. HEENT: Atraumatic, normocephalic, pupils equal and reactive bilaterally, negative for conjunctival pallor or scleral icterus, mucous membranes moist, TMs normal bilaterally, throat clear, neck supple, nontender, trachea midline. No drooling or trismus noted. No meningeal signs. No hot potato voice noted. Lungs: Clear to auscultation, breath sounds equal bilaterally, chest nontender. Surgical incisions consistent with recent surgical history. No erythema, drainage, or signs of infection of surgical site. Heart: S1S2, regular rate and rhythm Systolic ejection murmur best heard at the left upper sternal border Abdomen: Soft, nondistended, nontender. Negative for masses or hepatosplenomegaly. Negative for costovertebral tenderness. Pelvis: Stable nontender. Genitourinary: Deferred. Rectal: Deferred. Skin: Intact, warm, dry. No lesions or rashes noted. Extremities: Negative for cords or calf pain. Neurovascular unremarkable.Patient is wearing JO ANN hose bilaterally with bruising of the inner thighs and calves. Patient does have a surgical incision sites of bilateral inner thighs without erythema, drainage, or sign of infection. Neuro: Awake, alert, oriented. Cranial nerves II through XII unremarkable. Cerebellum unremarkable. Motor and sensory unremarkable throughout. Exam nonfocal. Notes: Dr. Castro directly involved in patient care. Dr. De La Vega, hospitalist at [facility] in [facility], consulted on patient and thoroughly discussed patient's case. Dr. De La Vega is accepting of transfer. EMS arranged. Voices understanding and is agreeable to plan of care. Denies any further questions or concerns at this time. Diagnostics: CBC, CMP, UA, EKG, chest x-ray, BNP Therapeutics: O2, 1 unit blood Impression: Symptomatic Anemia Dyspnea End stage renal disease on dialysis Plan: Transfer to [facility] via EMS to Dr. De La Vega, hospitalist Definitive disposition and diagnosis as appropriate pending reevaluation and review of above. - Related Data Allergies Allergy/AdvReac Type Severity Reaction Status Date / Time trazodone Allergy Itching Verified 09/06/19 16:13 Bandaids Allergy Itching Uncoded 09/06/19 16:13 Home Meds: Home Meds Ascorbic Acid [C-1000] 1,000 mg PO BID 05/22/15 [History] Bumetanide [Bumex] 1 mg PO QAM 05/22/15 [History] Melatonin 3 mg PO BEDTIME PRN 05/22/15 [History] Ranitidine [Zantac] 150 mg PO DAILY PRN 05/22/15 [History] Aspirin [Adult Low Dose Aspirin EC] 81 mg PO DAILY 05/23/15 [History] Glucosamine [Glucosamine Sulfate] 1,000 mg PO BID 07/28/15 [History] Metoprolol Tartrate 100 mg PO BID 11/03/17 [History] Calcium Acetate [PhosLo] 3 cap PO TID 03/15/19 [History] Clopidogrel [Plavix] 75 mg PO QAM 03/15/19 [History] Fenofibrate 54 mg PO QAM 03/15/19 [History] NIFEdipine [Procardia Xl] 60 mg PO BID 03/15/19 [History] Pantoprazole Sodium [Protonix] 20 mg PO QAM 03/15/19 [History] Sevelamer Carbonate [Renvela] 2 tab PO TID 03/15/19 [History] Albuterol Sulfate [Proair Respiclick] 2 puff IH Q4HR PRN 06/20/19 [History] Gabapentin [Neurontin] 100 mg PO BEDTIME 06/20/19 [History] Budesonide/Formoterol Fumarate [Symbicort 80-4.5 MCG] 2 puff INH BID PRN [History] Acetaminophen/oxyCODONE [Percocet 325-5 MG] 1 each PO Q4H PRN 09/06/19 [History] Fluticasone Propionate [Flonase] 2 sprays NASBOTH BEDTIME PRN 09/06/19 [History] Irbesartan [Avapro] 150 mg PO QAM 09/06/19 [History] Multivit-Min/FA/Lycopen/Lutein [Centrum Silver Ultra Men's] 1 each PO QAM [History] Ondansetron [Zofran ODT] 4 mg PO Q8H PRN 09/06/19 [History] Sennosides/Docusate Sodium [Docusate Sodium-Senna Tablet] 2 each PO DAILY [History] atorvaSTATin Calcium [Atorvastatin Calcium] 40 mg PO BEDTIME 09/06/19 [History] rOPINIRole HCl [Ropinirole ER] 2 mg PO BID 09/06/19 [History] traMADol [Ultram] 50 mg PO Q12H PRN 09/06/19 [History] Past Medical History Other HEENT History: Bilateral hearing aids, wears glasses, upper and lower denture Cardiovascular History: Reports: High Cholesterol, Hypertension, [place] Respiratory History: Reports: Intubation, Previous, SOB Other Respiratory History: SOB with excertion Gastrointestinal History: Reports: GERD, Hepatitis Other Gastrointestinal History: Hepatitis C with treatment Genitourinary History: Reports: Dialysis, Renal Disease, Other (See Below) Other Genitourinary History: hemodialysis 3x a week. (tues,th,sat) Musculoskeletal History: Reports: Fracture, Other (See Below) Other Musculoskeletal History: hx fx collarbone Neurological History: Reports: Other (See Below) Other Neuro History: Restless Legs Psychiatric History: Reports: None Endocrine/Metabolic History: Reports: Diabetes, Type II Insulin Pump Model and Poultry Sexer: None Hematologic History: Reports: Anticoagulation Therapy, Blood Transfusion(s) Immunologic History: Reports: None Oncologic (Cancer) History: Reports: None Dermatologic History: Reports: None - Infectious Disease History Infectious Disease History: Reports: Mumps - Past Surgical History Head Surgeries/Procedures: Reports: None HEENT Surgical History: Reports: Adenoidectomy, Oral Surgery, Tonsillectomy Cardiovascular Surgical History: Reports: Coronary Artery Bypass, Coronary Artery Stent, Other (See Below) Other Cardiovascular Surgeries/Procedures: Stenting 15 yrs ago [place] x1, [place] stenting [place] 09/2014. CABG x3 on 08/29/2019 GI Surgical History: Reports: Colonoscopy Other GI Surgeries/Procedures: Liver Biopsy 10 yrs ago Male Surgical History: Reports: Vasectomy Social & Family History - Family History Family Medical History: Noncontributory - Tobacco Use Smoking Status *Q: Former Smoker Used Tobacco, but Quit: Yes Month/Year Tobacco Last Used: 08/2019 - Caffeine Use Caffeine Use: Reports: Coffee - Recreational Drug Use Recreational Drug Use: No ED ROS GENERAL - Review of Systems Review Of Systems: Comprehensive ROS is negative, except as noted in HPI. ED EXAM, GENERAL - Physical Exam Exam: See Below (see dictation) Course - Vital Signs Last Recorded V/S: Last Vital Signs Temp 97.8 F 09/06/19 16:11 Pulse 71 09/06/19 19:30 Resp 18 09/06/19 19:30 BP 130/55 L 09/06/19 19:30 Pulse Ox 98 09/06/19 19:30 - Orders/Labs/Meds Orders: Active Orders 24 hr Category Date Time Status EKG Documentation Completion [RC] STAT Care 09/06/19 16:18 Active RT Aerosol Therapy [RC] ASDIRECTED Care 09/06/19 17:11 Active B-TYPE NATRIURETIC PEPTIDE,BNP [CHEM] Stat Lab 09/06/19 16:30 Received RED BLOOD CELLS LP [BBK] Stat Lab 09/06/19 18:00 Results TYPE AND SCREEN [BBK] Stat Lab 09/06/19 18:00 Results UA RFX LETY AND CULT IF INDIC [URIN] Stat Lab 09/06/19 16:18 Ordered Transfuse PRBC [Transfuse Red Blood Cells] [COMM] Stat Oth 09/06/19 17:46 Ordered Labs: Laboratory Tests 09/06/19 09/06/19 09/06/19 Range/Units 16:30 16:30 16:30 WBC 3.36 L (4.0-11.0) K/uL RBC 2.16 L (4.50-5.90) M/uL Hgb 6.7 L (13.0-17.0) g/dL Hct 20.4 L (38.0-50.0) % MCV 94.4 (80.0-98.0) fL MCH 31.0 (27.0-32.0) pg MCHC 32.8 (31.0-37.0) g/dL RDW Std Deviation 52.2 (28.0-62.0) fl RDW Coeff of Candido 17 H (11.0-15.0) % Plt Count 105 L (150-400) K/uL MPV 9.00 (7.40-12.00) fL Neut % (Auto) 78.3 (48.0-80.0) % Lymph % (Auto) 8.0 L (16.0-40.0) % Ceiba % (Auto) 11.9 (0.0-15.0) % Eos % (Auto) 1.5 (0.0-7.0) % Baso % (Auto) 0.3 (0.0-1.5) % Neut # (Auto) 2.6 (1.4-5.7) K/uL Lymph # (Auto) 0.3 L (0.6-2.4) K/uL Ceiba # (Auto) 0.4 (0.0-0.8) K/uL Eos # (Auto) 0.1 (0.0-0.7) K/uL Baso # (Auto) 0.0 (0.0-0.1) K/uL ABG pH 7.543 H (7.35-7.45) ABG pCO2 36 (35-45) mmHG ABG pO2 59 L (75-100) mmHG ABG HCO3 31 H (22-26) mEq/L ABG Total CO2 29.7 ABG Base Excess 7.9 H (-2.0-2.0) Sodium 138 (136-148) mmol/L Potassium 4.4 (3.5-5.1) mmol/L Chloride 99 (98-107) mmol/L Carbon Dioxide 28.9 (21.0-32.0) mmol/L BUN 30 H (7.0-18.0) mg/dL Creatinine 5.5 H (0.8-1.3) mg/dL Est Cr Clr Drug Dosing TNP Estimated GFR (MDRD) 10.5 ml/min Glucose 106 (74-106) mg/dL Calcium 9.5 (8.5-10.1) mg/dL Total Bilirubin 0.5 (0.2-1.0) mg/dL AST 14 L (15-37) IU/L ALT 8 L (14-63) IU/L Alkaline Phosphatase 68 (46-116) U/L Total Protein 6.6 (6.4-8.2) g/dL Albumin 3.0 L (3.4-5.0) g/dL Globulin 3.6 (2.6-4.0) g/dL Albumin/Globulin Ratio 0.8 L (0.9-1.6) Blood Type Antibody Screen Crossmatch 09/06/19 Range/Units 18:00 WBC (4.0-11.0) K/uL RBC (4.50-5.90) M/uL Hgb (13.0-17.0) g/dL Hct (38.0-50.0) % MCV (80.0-98.0) fL MCH (27.0-32.0) pg MCHC (31.0-37.0) g/dL RDW Std Deviation (28.0-62.0) fl RDW Coeff of Candido (11.0-15.0) % Plt Count (150-400) K/uL MPV (7.40-12.00) fL Neut % (Auto) (48.0-80.0) % Lymph % (Auto) (16.0-40.0) % Ceiba % (Auto) (0.0-15.0) % Eos % (Auto) (0.0-7.0) % Baso % (Auto) (0.0-1.5) % Neut # (Auto) (1.4-5.7) K/uL Lymph # (Auto) (0.6-2.4) K/uL Ceiba # (Auto) (0.0-0.8) K/uL Eos # (Auto) (0.0-0.7) K/uL Baso # (Auto) (0.0-0.1) K/uL ABG pH (7.35-7.45) ABG pCO2 (35-45) mmHG ABG pO2 (75-100) mmHG ABG HCO3 (22-26) mEq/L ABG Total CO2 ABG Base Excess (-2.0-2.0) Sodium (136-148) mmol/L Potassium (3.5-5.1) mmol/L Chloride (98-107) mmol/L Carbon Dioxide (21.0-32.0) mmol/L BUN (7.0-18.0) mg/dL Creatinine (0.8-1.3) mg/dL Est Cr Clr Drug Dosing Estimated GFR (MDRD) ml/min Glucose (74-106) mg/dL Calcium (8.5-10.1) mg/dL Total Bilirubin (0.2-1.0) mg/dL AST (15-37) IU/L ALT (14-63) IU/L Alkaline Phosphatase (46-116) U/L Total Protein (6.4-8.2) g/dL Albumin (3.4-5.0) g/dL Globulin (2.6-4.0) g/dL Albumin/Globulin Ratio (0.9-1.6) Blood Type O POSITIVE Antibody Screen NEGATIVE Crossmatch See Detail Meds: Medications Discontinued Medications Generic Name Dose Route Start Last Admin Trade Name Freq PRN Reason Stop Dose Admin Albuterol/Ipratropium 3 ml 09/06/19 17:11 09/06/19 17:25 Duoneb 3.0-0.5 Mg/3 Ml NEB 09/06/19 17:12 3 ml ONETIME ONE Administration Departure - Departure Time of Disposition: 18:00 Disposition: DC/Tfer to [facility] 02 Reason for Transfer *Q: Other (blood transfusion on dialysis) Clinical Impression: Symptomatic anemia, End stage renal disease on dialysis Dyspnea Qualifiers: Dyspnea type: unspecified Qualified Code(s): R06.00 - Dyspnea, unspecified Referrals: Yosef العراقي MD [Primary Care Provider] - Forms: ED Department Discharge - My Orders Last 24 Hours: My Active Orders 09/06/19 16:18 EKG Documentation Completion [RC] STAT UA RFX LETY AND CULT IF INDIC [URIN] Stat 09/06/19 16:30 B-TYPE NATRIURETIC PEPTIDE,BNP [CHEM] Stat 09/06/19 17:11 RT Aerosol Therapy [RC] ASDIRECTED 09/06/19 18:00 RED BLOOD CELLS LP [BBK] Stat - Assessment/Plan Last 24 Hours: My Active Orders 09/06/19 16:18 EKG Documentation Completion [RC] STAT UA RFX LETY AND CULT IF INDIC [URIN] Stat 09/06/19 16:30 B-TYPE NATRIURETIC PEPTIDE,BNP [CHEM] Stat 09/06/19 17:11 RT Aerosol Therapy [RC] ASDIRECTED 09/06/19 18:00 RED BLOOD CELLS LP [BBK] Stat
[2019-09-06] MEDS ORDERED: Albuterol/Ipratropium 3.0-0.5 MG/3 ML Neb Soln NEB ONE (17:11)
--- NOTE | 2019-09-06 17:15 | CR ---
INDICATION: Shortness of breath TECHNIQUE: Chest 1 view. COMPARISON: 04/16/2019 FINDINGS: Cardiovascular and mediastinum: Heart size and vasculature are normal in caliber and appearance. Mediastinum is within normal limits. Sternotomy wires. Lungs and pleural space: Lungs are clear. No sign of infiltrate or mass. No sign of pleural effusion. No pneumothorax. Bones and soft tissues: No significant findings. IMPRESSION: Unremarkable chest. Dictated by Kris Joiner MD @ 09/06/2019 5:14:06 PM Dictated by: Kris Joiner MD @ 09/06/2019 17:14:17 (Electronically Signed)
[2019-09-06 17:19] LABS: BLOOD UREA NITROGEN,BUN 30 mg/dL (7.0-18.0); CARBON DIOXIDE,CO2 28.9 mmol/L (21.0-32.0); CHLORIDE,CL 99 mmol/L (98-107); GLUCOSE RANDOM 106 mg/dL (74-106); POTASSIUM,K 4.4 mmol/L (3.5-5.1); SODIUM,NA 138 mmol/L (136-148)
[2019-09-06 20:00] VITALS: BP 130/55; PULSE 71
== END 2019-09-06 20:30 ==
LOC: MW.ED 16:03
DX: R06.00 Dyspnea, unspecified (principal); E11.22 Type 2 diabetes mellitus with diabetic chronic kidney disease; I12.0 Hypertensive chronic kidney disease with stage 5 chronic kidney disease or end stage renal disease; N18.6 End stage renal disease; D63.1 Anemia in chronic kidney disease; E78.00 Pure hypercholesterolemia, unspecified; I25.2 Old myocardial infarction; K21.9 Gastro-esophageal reflux disease without esophagitis; Z87.891 Personal history of nicotine dependence; Z79.01 Long term (current) use of anticoagulants; Z88.5 Allergy status to narcotic agent; Z91.048 Other nonmedicinal substance allergy status; Z79.02 Long term (current) use of antithrombotics/antiplatelets; Z79.899 Other long term (current) drug therapy; Z79.82 Long term (current) use of aspirin
CPT/HCPCS: 36415; 36430; 36600; 71045; 80053; 82803; 83880; 85025; 86850; 86900; 86901; 86920; 86921; 86922; 93005; 94640; 99285; P9016; J7620-GY

== ENCOUNTER 2019-09-15 05:54 | Emergency (ER) | payer MEDICARE ==
--- NOTE | 2019-09-15 05:57 | EDM.PDOC ---
ED HPI GENERAL MEDICAL PROBLEM - General Stated Complaint: DIARRHEA, BLACK STOOL (DIALYSIS PT) Time Seen by Provider: 09/15/19 05:56 Source of Information: Reports: Patient - History of Present Illness INITIAL COMMENTS - FREE TEXT/NARRATIVE: HISTORY AND PHYSICAL: History of present illness: pt presents via private vehicle as history of end-stage renal disease on dialysis] is on Plavix. Over the last month his had transfusion and transferred to [facility] at which time he did have an upper endoscopy resulting in cauterization of several lesions per patient, patient did have bloody emesis between 1 and 2 units here in the emergency room He has no fever chills or sweats no chest pain shortness breath headache dizziness or palpitation no urine symptoms he has had multiple black stools this morning beginning at 4 AM Review of systems: As per history of present illness and below otherwise all systems reviewed and negative. Past medical history: As per history of present illness and as reviewed below otherwise noncontributory. Surgical history: As per history of present illness and as reviewed below otherwise noncontributory. Social history: No reported history of drug or alcohol abuse. Family history: As per history of present illness and as reviewed below otherwise noncontributory. Physical exam: HEENT: Atraumatic, normocephalic, pupils reactive, negative for conjunctival pallor or scleral icterus, mucous membranes moist, throat clear, neck supple, nontender, trachea midline. Lungs: Clear to auscultation, breath sounds equal bilaterally, chest nontender. Heart: S1S2, regular, negative for clicks, rubs, or JVD. Abdomen: Soft, nondistended, nontender. Negative for masses or hepatosplenomegaly. Negative for costovertebral tenderness. Pelvis: Stable nontender. Genitourinary: Deferred. Rectal: Deferred. Extremities: Atraumatic, negative for cords or calf pain. Neurovascular unremarkable. Neuro: Awake, alert, oriented. Cranial nerves II through XII unremarkable. Cerebellum unremarkable. Motor and sensory unremarkable throughout. Exam nonfocal. Diagnostics: [EC's BMP UAinr Therapeutics: [Saline Transfuse 2 units PRBCs ] tonic saline milligrams IV Zofran Impression: [ GI bleed AH renal disease due for dialysis this morning Chronic history of baseline ] Definitive disposition and diagnosis as appropriate pending reevaluation and review of above. headache Pain Score (Numeric/FACES): 6 abdomen Pain Score (Numeric/FACES): 3 - Related Data Allergies Allergy/AdvReac Type Severity Reaction Status Date / Time trazodone Allergy Itching Verified 09/15/19 05:58 Bandaids Allergy Itching Uncoded 09/15/19 05:58 Home Meds: Home Meds Ascorbic Acid [C-1000] 1,000 mg PO BID 05/22/15 [History] Bumetanide [Bumex] 1 mg PO QAM 05/22/15 [History] Melatonin 3 mg PO BEDTIME PRN 05/22/15 [History] Ranitidine [Zantac] 150 mg PO DAILY PRN 05/22/15 [History] Aspirin [Adult Low Dose Aspirin EC] 81 mg PO DAILY 05/23/15 [History] Glucosamine [Glucosamine Sulfate] 1,500 mg PO BID 07/28/15 [History] Metoprolol Tartrate 100 mg PO BID 11/03/17 [History] Calcium Acetate [PhosLo] 3 cap PO TID 03/15/19 [History] Clopidogrel [Plavix] 75 mg PO QAM 03/15/19 [History] Fenofibrate 54 mg PO QAM 03/15/19 [History] NIFEdipine [Procardia Xl] 60 mg PO BID 03/15/19 [History] Pantoprazole Sodium [Protonix] 40 mg PO QAM 03/15/19 [History] Sevelamer Carbonate [Renvela] 3 tab PO TID 03/15/19 [History] Albuterol Sulfate [Proair Respiclick] 2 puff IH Q4HR PRN 06/20/19 [History] Gabapentin [Neurontin] 100 mg PO BEDTIME 06/20/19 [History] Budesonide/Formoterol Fumarate [Symbicort 80-4.5 MCG] 2 puff INH BID PRN [History] Fluticasone Propionate [Flonase] 2 sprays NASBOTH BEDTIME PRN 09/06/19 [History] Multivit-Min/FA/Lycopen/Lutein [Centrum Silver Ultra Men's] 1 each PO QAM [History] rOPINIRole HCl [Ropinirole ER] 2 mg PO BID 09/06/19 [History] Cholecalciferol (Vitamin D3) [Vitamin D3] 25 mcg PO ASDIRECTED 09/15/19 [History ] Isosorbide Mononitrate [Isosorbide Mononitrate ER] 1.5 tab PO DAILY 09/15/19 [ History] Pravastatin [Pravachol] 10 mg PO DAILY 09/15/19 [History] Turmeric Root Extract [Turmeric] 500 mg PO DAILY 09/15/19 [History] hydrALAZINE HCl [Hydralazine HCl] 100 mg PO TID 09/15/19 [History] hydroCHLOROthiazide [Hydrochlorothiazide] 25 mg PO DAILY 09/15/19 [History] Past Medical History Other HEENT History: Bilateral hearing aids, wears glasses, upper and lower denture Cardiovascular History: Reports: High Cholesterol, Hypertension, SD Respiratory History: Reports: Intubation, Previous, SOB Other Respiratory History: SOB with excertion Gastrointestinal History: Reports: GERD, Hepatitis Other Gastrointestinal History: Hepatitis C with treatment Genitourinary History: Reports: Dialysis, Renal Disease, Other (See Below) Other Genitourinary History: hemodialysis 3x a week. 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 Hematologic History: Reports: Anticoagulation Therapy, Blood Transfusion(s) Immunologic History: Reports: None Oncologic (Cancer) History: Reports: None Dermatologic History: Reports: None - Infectious Disease History Infectious Disease History: Reports: Mumps - Past Surgical History Head Surgeries/Procedures: Reports: None HEENT Surgical History: Reports: Adenoidectomy, Oral Surgery, Tonsillectomy Cardiovascular Surgical History: Reports: Coronary Artery Bypass, Coronary Artery Stent, Other (See Below) Other Cardiovascular Surgeries/Procedures: Stenting 15 yrs ago [place] x1, [place] stenting [place] 09/2014. CABG x3 on 08/29/2019 GI Surgical History: Reports: Colonoscopy Other GI Surgeries/Procedures: Liver Biopsy 10 yrs ago Male Surgical History: Reports: Vasectomy Social & Family History - Family History Family Medical History: Noncontributory - Caffeine Use Caffeine Use: Reports: Coffee ED ROS GENERAL - Review of Systems Review Of Systems: See Below ED EXAM, GENERAL - Physical Exam Exam: See Below Course - Vital Signs Last Recorded V/S: Last Vital Signs Temp 96.3 F 09/15/19 05:58 Pulse 76 09/15/19 06:42 Resp 18 09/15/19 06:42 BP 170/59 H 09/15/19 06:42 Pulse Ox 96 09/15/19 06:42 - Orders/Labs/Meds Orders: Active Orders 24 hr Category Date Time Status EKG Documentation Completion [RC] STAT Care 09/15/19 06:57 Active Verify Patient Consent Obtain [RC] ASDIRECTED Care 09/15/19 06:50 Active OCCULT BLOOD DIAGNOSTIC [OP] Stat Lab 09/15/19 06:04 Ordered RED BLOOD CELLS LP [BBK] Stat Lab 09/15/19 06:16 Results TYPE AND SCREEN [BBK] Stat Lab 09/15/19 06:16 Received UA RFX LETY AND CULT IF INDIC [URIN] Stat Lab 09/15/19 06:06 Ordered Pantoprazole [ProTONIX IV] 80 mg Med 09/15/19 07:00 Ordered Sodium Chloride 0.9% [Normal Saline] 100 ml IV .Continuous Sodium Chloride 0.9% [Normal Saline] 1,000 ml Med 09/15/19 06:15 Active IV STAT Transfuse Red Blood Cells [COMM] Stat Oth 09/15/19 06:50 Ordered Medication Orders Sodium Chloride (Normal Saline) 1,000 mls @ 125 mls/hr IV STAT CÉSAR Last Admin: 09/15/19 06:23 Dose: 125 mls/hr Pantoprazole Sodium 80 mg/ (Sodium Chloride) 100 mls @ 10 mls/hr IV .Continuous [facility] Labs: Laboratory Tests 09/15/19 09/15/19 09/15/19 Range/Units 06:16 06:16 06:16 WBC 8.03 (4.0-11.0) K/uL RBC 2.46 L (4.50-5.90) M/uL Hgb 7.6 L (13.0-17.0) g/dL Hct 23.7 L (38.0-50.0) % MCV 96.3 (80.0-98.0) fL MCH 30.9 (27.0-32.0) pg MCHC 32.1 (31.0-37.0) g/dL RDW Std Deviation 61.0 (28.0-62.0) fl RDW Coeff of [place] 18 H (11.0-15.0) % Plt Count 207 (150-400) K/uL MPV 8.90 (7.40-12.00) fL Neut % (Auto) 84.0 H (48.0-80.0) % Lymph % (Auto) 7.5 L (16.0-40.0) % [place] % (Auto) 7.2 (0.0-15.0) % Eos % (Auto) 1.1 (0.0-7.0) % Baso % (Auto) 0.2 (0.0-1.5) % Neut # (Auto) 6.7 H (1.4-5.7) K/uL Lymph # (Auto) 0.6 (0.6-2.4) K/uL [place] # (Auto) 0.6 (0.0-0.8) K/uL Eos # (Auto) 0.1 (0.0-0.7) K/uL Baso # (Auto) 0.0 (0.0-0.1) K/uL Nucleated RBC % 0.0 /100WBC Nucleated RBCs # 0 K/uL INR Sodium 140 (136-148) mmol/L Potassium 5.7 H (3.5-5.1) mmol/L Chloride 101 (98-107) mmol/L Carbon Dioxide 26.6 (21.0-32.0) mmol/L BUN 89 H (7.0-18.0) mg/dL Creatinine 10.1 H (0.8-1.3) mg/dL Est Cr Clr Drug Dosing 6.26 mL/min Estimated GFR (MDRD) 5.2 ml/min Glucose 143 H (74-106) mg/dL Calcium 10.0 (8.5-10.1) mg/dL Blood Type O POSITIVE Crossmatch See Detail 09/15/19 Range/Units 06:16 WBC (4.0-11.0) K/uL RBC (4.50-5.90) M/uL Hgb (13.0-17.0) g/dL Hct (38.0-50.0) % MCV (80.0-98.0) fL MCH (27.0-32.0) pg MCHC (31.0-37.0) g/dL RDW Std Deviation (28.0-62.0) fl RDW Coeff of [place] (11.0-15.0) % Plt Count (150-400) K/uL MPV (7.40-12.00) fL Neut % (Auto) (48.0-80.0) % Lymph % (Auto) (16.0-40.0) % [place] % (Auto) (0.0-15.0) % Eos % (Auto) (0.0-7.0) % Baso % (Auto) (0.0-1.5) % Neut # (Auto) (1.4-5.7) K/uL Lymph # (Auto) (0.6-2.4) K/uL [place] # (Auto) (0.0-0.8) K/uL Eos # (Auto) (0.0-0.7) K/uL Baso # (Auto) (0.0-0.1) K/uL Nucleated RBC % /100WBC Nucleated RBCs # K/uL INR 1.13 Sodium (136-148) mmol/L Potassium (3.5-5.1) mmol/L Chloride (98-107) mmol/L Carbon Dioxide (21.0-32.0) mmol/L BUN (7.0-18.0) mg/dL Creatinine (0.8-1.3) mg/dL Est Cr Clr Drug Dosing mL/min Estimated GFR (MDRD) ml/min Glucose (74-106) mg/dL Calcium (8.5-10.1) mg/dL Blood Type Crossmatch Meds: Medications Generic Name Dose Route Start Last Admin Trade Name Freq PRN Reason Stop Dose Admin Sodium Chloride 1,000 mls @ 125 mls/hr 09/15/19 06:15 09/15/19 06:23 Normal Saline IV 125 mls/hr STAT CÉSAR Administration Pantoprazole Sodium 80 mg/ 100 mls @ 10 mls/hr 09/15/19 07:00 Sodium Chloride IV .Continuous CÉSAR Discontinued Medications Generic Name Dose Route Start Last Admin Trade Name Freq PRN Reason Stop Dose Admin Meperidine HCl 25 mg 09/15/19 06:20 09/15/19 06:34 Demerol IVPUSH 09/15/19 06:21 25 mg ONETIME ONE Administration Ondansetron HCl 8 mg 09/15/19 06:52 Zofran IVPUSH 09/15/19 06:53 ONETIME ONE Ondansetron HCl Confirm 09/15/19 06:53 Zofran Administered 09/15/19 06:54 Dose 8 mg .ROUTE .STK-MED ONE Departure - Departure Time of Disposition: 07:01 Disposition: Home, Self-Care 01 Condition: Good Clinical Impression: GI bleed Qualifiers: GI bleed type/associated pathology: unspecified gastrointestinal hemorrhage type Qualified Code(s): K92.2 - Gastrointestinal hemorrhage, unspecified - Discharge Information Sepsis Event Note - Focused Exam Vital Signs: Vital Signs Temp Pulse Resp BP Pulse Ox 09/15/19 06:42 76 18 170/59 H 96 09/15/19 05:58 96.3 F 91 18 159/65 H 98 Date Exam was Performed: 09/15/19 Time Exam was Performed: 06:59 - My Orders Last 24 Hours: My Active Orders 09/15/19 06:04 OCCULT BLOOD DIAGNOSTIC [OP] Stat 09/15/19 06:06 UA RFX LETY AND CULT IF INDIC [URIN] Stat 09/15/19 06:15 Sodium Chloride 0.9% [Normal Saline] 1,000 ml IV STAT 09/15/19 06:16 RED BLOOD CELLS LP [BBK] Stat TYPE AND SCREEN [BBK] Stat 09/15/19 06:50 Verify Patient Consent Obtain [RC] ASDIRECTED Transfuse Red Blood Cells [COMM] Stat 09/15/19 06:57 EKG Documentation Completion [RC] STAT 09/15/19 07:00 Pantoprazole [ProTONIX IV] 80 mg Sodium Chloride 0.9% [Normal Saline] 100 ml IV .Continuous - Assessment/Plan Last 24 Hours: My Active Orders 09/15/19 06:04 OCCULT BLOOD DIAGNOSTIC [OP] Stat 09/15/19 06:06 UA RFX LETY AND CULT IF INDIC [URIN] Stat 09/15/19 06:15 Sodium Chloride 0.9% [Normal Saline] 1,000 ml IV STAT 09/15/19 06:16 RED BLOOD CELLS LP [BBK] Stat TYPE AND SCREEN [BBK] Stat 09/15/19 06:50 Verify Patient Consent Obtain [RC] ASDIRECTED Transfuse Red Blood Cells [COMM] Stat 09/15/19 06:57 EKG Documentation Completion [RC] STAT 09/15/19 07:00 Pantoprazole [ProTONIX IV] 80 mg Sodium Chloride 0.9% [Normal Saline] 100 ml IV .Continuous
[2019-09-15] MEDS ORDERED: Sodium Chloride 0.9% 1,000 ML IV SCH (06:15)
[2019-09-15] MEDS ORDERED: Meperidine PF 25 MG/ML Syringe IVPUSH ONE (06:20)
[2019-09-15] MEDS ORDERED: Ondansetron 4 MG/2 ML SDV IVPUSH ONE (06:52)
[2019-09-15 06:53] LABS: CARBON DIOXIDE,CO2 26.6 mmol/L (21.0-32.0); POTASSIUM,K 5.7 mmol/L (3.5-5.1)
[2019-09-15] MEDS ORDERED: Ondansetron 4 MG/2 ML SDV ONE (06:53)
[2019-09-15] MEDS ORDERED: Pantoprazole 80 MG in Sodium Chloride 0.9% 100 ML IV SCH ×2 (07:00→07:15)
[2019-09-15] MEDS ORDERED: Water For Injection, Sterile 20 ML ONE (07:10)
[2019-09-15] MEDS ORDERED: Pantoprazole 40 MG Vial ONE (07:10)
[2019-09-15] MEDS ORDERED: Pantoprazole 80 MG in Sodium Chloride 0.9% 20 ML IVPUSH ONE (07:12)
--- NOTE | 2019-09-15 07:45 | CR ---
INDICATION: Chest pain, shortness of breath. COMPARISON: Portable chest dated 09/06/2019 TECHNIQUE: Portable AP erect chest performed at 7:14 a.m. FINDINGS: The lungs are clear. The patient is status post prior midline sternotomy and coronary bypass. The heart, mediastinum and pulmonary vessels are of normal size. There is no evidence of pleural fluid. There is an old healed right clavicular fracture. IMPRESSION: No acute process identified. Dictated by Tin Jung MD @ Sep 15 2019 7:42AM Signed by Dr. Tin Jung @ Sep 15 2019 7:43AM
[2019-09-15 07:46] VITALS: BP 139/54; PULSE 71
== END 2019-09-15 07:46 ==
LOC: MW.ED 05:54
DX: K92.2 Gastrointestinal hemorrhage, unspecified (principal); N18.6 End stage renal disease; I25.2 Old myocardial infarction; I10 Essential (primary) hypertension; E78.00 Pure hypercholesterolemia, unspecified; K21.9 Gastro-esophageal reflux disease without esophagitis; E11.9 Type 2 diabetes mellitus without complications; Z99.2 Dependence on renal dialysis; Z88.8 Allergy status to other drugs, medicaments and biological substances; Z91.048 Other nonmedicinal substance allergy status; Z79.01 Long term (current) use of anticoagulants; Z79.51 Long term (current) use of inhaled steroids; Z79.82 Long term (current) use of aspirin; Z79.899 Other long term (current) drug therapy
CPT/HCPCS: 36415; 36430; 71045; 80048; 85025; 85610; 86850; 86900; 86901; 86920; 86921; 86922; 93005; 96361; 96374; 96375; 99284; C9113; J2175; J2405; J7030; P9016